=== PATIENT | female | born 1965 | race Caucasian/White ===

== ENCOUNTER 2016-12-20 07:18 | Inpatient (IN) | payer MEDICARE, OTHER ==
[2016-12-20] MEDS ORDERED: SODIUM CHLORIDE 0.9% 1,000 ML IV STA (07:42)
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
[2016-12-20 08:03] LABS: Partial Thromboplastin Time 23.1 sec (22.0-30.0); Prothrombin Time 10.3 sec (9.0-12.0)
[2016-12-20 08:04] LABS: Basophils % (A) 1 %; CH 35.3; CHCM 33.3; Eosinophils # (A) 0.2 k/uL (0-0.7); Eosinophils % (A) 3 %; HCT 43.8 % (34.0-46.0); HGB 14.1 gm/dL (11.4-16.0); Luc # (Auto) 0.09; Luc % (Auto) 1; Lymphocytes # (A) 1.1 k/uL (1.0-4.8); Lymphocytes % (A) 17 %; MCH 34.2 pg (25.0-35.0); MCHC 32.1 g/dL (31.0-37.0); MCV 106.6 fL (80.0-100.0); Macrocytosis Moderate; Mean Platelet Volume 7.7; Monocytes # (A) 0.2 k/uL (0-1.0); Monocytes % (A) 4 %; Neutrophils # (A) 4.7 k/uL (1.3-7.7); Neutrophils % (A) 74 %; RBC 4.11 m/uL (3.80-5.40); RDW 14.1 % (11.5-15.5); WBC 6.3 k/uL (3.8-10.6)
--- NOTE | 2016-12-20 08:09 | CT ---
EXAMINATION TYPE: CT brain wo con DATE OF EXAM: 12/20/2016 COMPARISON: 12/17/2016 HISTORY: Possible seizure, recent TIA CT DLP: 971.[address] of the brain was performed. The ventricles, basal cisterns and sulci overlying the cerebral convexities demonstrate a normal appe arance. There is no evidence for intracranial hemorrhage or sulcal effacement. No mass effects are seen. Osseous calvarium is intact. If symptoms persist consider MRI as clinically warranted. IMPRESSION: 1. No acute intracranial process is seen at this time.
[2016-12-20 08:14] LABS: ALT 63 U/L (9-52); AST 107 U/L (14-36); Alkaline Phosphatase 90 U/L (38-126); Anion Gap 14 mmol/L; Blood Urea Nitrogen 4 mg/dL (7-17); Calcium 8.9 mg/dL (8.4-10.2); Carbon Dioxide 21 mmol/L (22-30); Chloride 112 mmol/L (98-107); Glucose 75 mg/dL (74-99); Non-African American GFR(MDRD) >60 (>60 ml/min/1.73 sqM); Sodium 147 mmol/L (137-145); Total Bilirubin 0.5 mg/dL (0.2-1.3); Total Protein 7.2 g/dL (6.3-8.2)
[2016-12-20 08:16] LABS: Alcohol 238 mg/dL
[2016-12-20 08:17] LABS: Creatine Kinase 157 U/L (30-135)
[2016-12-20 08:30] LABS: Creatine Kinase MB 1.5 ng/mL (0.0-2.4); Troponin I <0.012 ng/mL (0.000-0.034)
--- NOTE | 2016-12-20 08:30 | XR ---
EXAMINATION TYPE: XR chest 2V DATE OF EXAM: 12/20/2016 COMPARISON: 12/17/2016 HISTORY: Altered mental status and difficulty in breathing TECHNIQUE: Frontal and lateral views of the chest are obtained. FINDINGS: There is no focal air space opacity. No evidence for pneumothorax. No pleural effusion. The cardiac silhouette size is within normal limits. The osseous structures are grossly intact. IMPRESSION: 1. No acute cardiopulmonary process.
[2016-12-20] MEDS ORDERED: ASPIRIN 325 MG TAB PO STA (09:32)
[2016-12-20] MEDS ORDERED: LORazepam 2 MG/ML INJ IV PRN ×2 (09:34)
[2016-12-20] MEDS ORDERED: THIAMINE 100 MG/ML 2 ML VIAL IM STA (09:34)
[2016-12-20] MEDS ORDERED: MULTIVITAMINS, THERA 1 EACH TAB PO SCH (12:00)
[2016-12-20 15:06] VITALS: RESP 18
[2016-12-20] MEDS: SODIUM CHLORIDE 0.9% 1,000 ML IV SCH ×2 (15:34→20:40)
[2016-12-20] MEDS: LORazepam 2 MG/ML INJ IV PRN ×4 (16:01→22:58)
[2016-12-20] MEDS ORDERED: THIAMINE 100 MG TAB PO SCH (17:00)
--- NOTE | 2016-12-20 20:15 | MR ---
EXAMINATION TYPE: MR brain wo con DATE OF EXAM: 12/20/2016 COMPARISON: NONE HISTORY: Possible seizure, recent TIA Standard multiplanar, multisequence MRI departmental protocol Multiplanar, multisequence images of the brain were acquired. Diffusion weighted imaging was performe d. FINDINGS: Ventricles have normal size. There is no mass effect nor midline shift. There is no sign of intracranial hemorrhage. Crawford-white matter structures have fairly normal signal pattern. There is no evidence of cerebral edema. Sella turcica appears normal. Brainstem is intact. There is no evidence of posterior fossa mass. There is normal flow void in the anterior middle and posterior cerebral santy felipe. Corpus callosum is intact. There is minimal mucosal thickening in the ethmoid and maxillary sin uses. IMPRESSION: Minimal sinusitis. Otherwise negative MR scan of the brain. No evidence of cortical infarct.
[2016-12-20] MEDS: OXcarbazepine 300 MG TAB PO SCH (20:40)
--- NOTE | 2016-12-20 20:58 | HP ---
HISTORY AND PHYSICAL DATE OF ADMISSION: 12/20/16 CHIEF COMPLAINT: Seizure. HISTORY OF PRESENT ILLNESS: This is a 51-year-old female who was discharged from the hospital yesterday after being admitted for alcohol intoxication and lethargy. Patient went home and drank 1 pint of vodka after she slept the whole night, when in the morning went to her friend's house and over there, she passed out and was witnessed to have a seizure according to her friend who called the EMS and brought her to the hospital. The patient denied tongue biting. Denied any urine or bladder incontinence. Denied any fall or head trauma. Stated that she remembers being weak and lethargic, was hearing voices around her but was not able to make any movement due to lethargy. Patient states that she was trying to quit drinking, but after she left the hospital, she went with the same Cleo and had this 1 pint of vodka. The patient had a prior admission 2 days ago where her alcohol level was greater than 300 and patient is a heavy alcoholic, continued to smoke 1-2 packs per day and denies any recreational drug use. The patient is denying chest pain, shortness breath, nausea, vomiting, abdominal pain, dizziness, lightheadedness, or blurry vision. ALLERGIES: No known drug allergies. MEDICATIONS: Home medication: The patient quit taking all her medication at the time. She used to be on albuterol inhaler for asthma and anxiety and depression medication along with multivitamins. REVIEW OF SYSTEMS: All 14 systems reviewed and negative except as above. PAST MEDICAL HISTORY: 1. History of TIA in the past. 2. Liver disease due to to alcohol abuse. 3. History of pulmonary embolism. 4. Anxiety. 5. Depression. 6. Posttraumatic stress disorder. 7. Bipolar disorder. SOCIAL HISTORY: Drinks 1-2 pints of vodka every day. Denied recreational drugs and stated that she smokes 1-2 packs cigarettes per day. FAMILY HISTORY: Mother with diabetes and CVA. Father who at age 67 of lung cancer. PHYSICAL EXAMINATION: Vital signs temperature 97.7, heart rate 95, respiratory 16, blood pressure 136/79, pulse ox is 97% on room air. General: Left eye without previous bruising. NECK: Supple. No masses. No thyromegaly. LUNGS: Clear to auscultation bilaterally. NECK: Supple S1, S2. ABDOMEN: Soft, nontender, soft, bowel sounds all 4 quadrants. Lower extremity no edema. Psych alert oriented x3. Relaxed mood and affect. Normal remote and recent memory. Neuro: No focal deficits. Cranial nerves 2-12 intact. Normal gait. Reflexes and sensation. Skin no new rash. IMAGING AND LABS: A brain CT showed no acute process. EKG showed normal sinus rhythm. CBC showed normal finding. Chemistry showed sodium 147 and normal otherwise. Have liver enzymes stable and elevated at 107, 63. AST and ALT respectively and troponin was negative. Albumin 4.4. Serum alcohol level was 238 on presentation. PT, PTT, INR within normal limits. Urine drug screen was positive for benzo. ASSESSMENT AND PLAN: 1. Generalized weakness. The patient continued to do heavy drinking even after a few hours from discharge from the hospital, seems to be noncompliant despite all the efforts from social work associate, hospital worker and myself to consultation regarding alcohol cessation, but patient continued to drink heavily and she knows the outcome and stated that she cannot resist. The patient likely had alcohol intoxication and passed out due to that reason and was brought to the emergency room by a friend because of the jerking movement that could represent seizure versus vasovagal syncope. Given the lack of tongue biting, trauma, urinary or bladder incontinence, I would like to consult Neurology for further evaluation. Monitor patient's withdrawal symptoms. Place her on CIWA protocol and multivitamin along with folic acid and repeat her blood work in the morning. Consider discharging patient per Neurology recommendation. 2. Alcohol abuse. Management as above. 3. Tobacco dependency. Continue counseling patient during this hospital stay. 4. Asthma seems to be in remission. Will continue inhalers as needed. 5. Hyponatremia, likely secondary to dehydration. Will continue gentle hydration and repeat blood work in the morning. 6. Discharge planning based on clinical progress. MMODL / IJN: [id number] /
[2016-12-21] MEDS: LORazepam 2 MG/ML INJ IV PRN ×3 (03:05→08:40)
[2016-12-21 03:19] LABS: Cholesterol 257 mg/dL (<200); HDL Cholesterol 109 mg/dL (40-60)
[2016-12-21] MEDS: SODIUM CHLORIDE 0.9% 1,000 ML IV SCH (06:15)
[2016-12-21] MEDS: OXcarbazepine 300 MG TAB PO SCH (08:38)
[2016-12-21] MEDS ORDERED: ATENOLOL 25 MG TAB PO SCH (09:00)
[2016-12-21] MEDS ORDERED: ASPIRIN 325 MG TAB PO SCH (09:00)
--- NOTE | 2016-12-21 09:38 | P.DS ---
Providers Date of admission: 12/20/16 09:33 Attending physician: Blank Eugene Consults: 12/20/16 09:33 Consult Physician Urgent Consulting Provider: Daphne Meza Consult Reason/Comments: cva Do you want consulting provider notified?: Yes [facility] Course: This is 51 years old female with history of alcohol abuse presents to the hospital one day after discharge from the hospital for generalized weakness which felt to be related to her chronic alcoholism. Patient was witnessed to have episodes of seizure by her friend after drinking 2 pints of Vodka,. Patient wasn't close to the emergency department and felt to have symptoms suggesting seizure and other etiology needed to be ruled out. MRI was done and showed normal finding. Patient felt stable from the medical standpoint for discharge consult regarding cessation and was started on Lipitor for her elevated cholesterol level. Patient is to follow-up with her primary care physician in 3 days. Plan - Discharge Summary Discharge Rx Participant: No New Discharge Prescriptions: No Action Atenolol [Tenormin] 25 mg PO DAILY #30 tab Albuterol Inhaler [Ventolin Hfa Inhaler] 1 - 2 puff INHALATION RT-Q6H PRN #1 inhaler PRN Reason: Shortness Of Breath Thiamine [Vitamin B-1] 100 mg PO DAILY #30 tablet Multivitamin [Men's Multi-Vitamin] 1 tab PO DAILY Atorvastatin [Lipitor] 10 mg PO DAILY Discharge Medication List Albuterol Inhaler [Ventolin Hfa Inhaler] 1 - 2 puff INHALATION RT-Q6H PRN #1 inhaler 12/19/16 [Rx] Atenolol [Tenormin] 25 mg PO DAILY #30 tab 12/19/16 [Rx] Thiamine [Vitamin B-1] 100 mg PO DAILY #30 tablet 12/19/16 [Rx] Multivitamin [Men's Multi-Vitamin] 1 tab PO DAILY 12/20/16 [History] Atorvastatin [Lipitor] 10 mg PO DAILY 12/21/16 [History] Follow up Appointment(s)/Referral(s): Daphne Meza MD [STAFF PHYSICIAN] - 1 Week Terrell Craig DO [Primary Care Provider] - 1-2 days Patient Instructions/Handouts: Generalized Anxiety Disorder (ED)
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
[2016-12-21 10:27] VITALS: TEMP 98
[2016-12-21] MEDS ORDERED: THIAMINE 100 MG TAB PO SCH (12:00)
[2016-12-21] MEDS ORDERED: MULTIVITAMINS, THERA 1 EACH TAB PO SCH (12:00)
[2016-12-21 13:05] VITALS: BP 133/94; PULSE 82
--- NOTE | 2016-12-21 18:56 | EEG ---
ELECTROENCEPHALOGRAM REPORT DATE OF SERVICE: 12/21/2016. REASON FOR TESTING: Seizure. CURRENT ANTIEPILEPTIC MEDICATIONS: Trileptal. DESCRIPTION OF THE RECORDING: This EEG was performed using a 21 channel digital electroencephalograph, following international 10-20 system. DESCRIPTION OF THE RECORDING: From the beginning of the tracing, with patient's eyes closed, the background rhythm was mostly consisting of 9-10 hertz alpha frequency in the posterior occipital leads. No obvious asymmetry is seen. Hyperventilation was performed with a minimal buildup of amplitude seen. No pathological waves were elicited. Photic stimulation was performed with a minimal driving response seen. No pathological waves were elicited. Frequent muscle and movement artifacts are seen. The patient remains awake throughout the tracing. No epileptiform discharges were seen. Her EKG lead showed a regular rate and rhythm. INTERPRETATION: This awake EEG can be considered within normal limits. There is no asymmetry seen. No epileptiform discharges were noticed. The absence of epileptiform discharges does not rule out the diagnosis of epilepsy, therefore clinical correlation is recommended. MMMADDY / IJN: [id number] /
== END 2016-12-21 16:11 | disposition home or self-care (01) | DRG 101 ==
LOC: EC 07:18 → 6SEL 09:33
PROVIDERS: ADMIT Internal Medicine; ATTEND Internal Medicine
DX: G40.89 Other seizures (principal); E87.0 Hyperosmolality and hypernatremia; K70.9 Alcoholic liver disease, unspecified; E86.0 Dehydration; E78.00 Pure hypercholesterolemia, unspecified; F10.229 Alcohol dependence with intoxication, unspecified; F17.200 Nicotine dependence, unspecified, uncomplicated; F43.10 Post-traumatic stress disorder, unspecified; J45.909 Unspecified asthma, uncomplicated; S00.83XA Contusion of other part of head, initial encounter; F32.9 Major depressive disorder, single episode, unspecified; F41.1 Generalized anxiety disorder; Z91.19 Patient's noncompliance with other medical treatment and regimen; Y90.7 Blood alcohol level of 200-239 mg/100 ml
CPT/HCPCS: 36415; 70450; 70551; 71020; 80053; 80061; 80306; 80320; 82550; 82553; 84484; 85025; 85610; 85730; 93005; 95819; 96360; 96361; 99285

== ENCOUNTER 2017-04-23 15:26 | Observation (INO) | payer MEDICARE, OTHER ==
[2017-04-23] MEDS ORDERED: LORazepam 2 MG/ML INJ IV STA (16:10)
[2017-04-23] MEDS ORDERED: SODIUM CHLORIDE 0.9% 1,000 ML IV STA ×2 (16:10)
--- NOTE | 2017-04-23 16:14 | ED ---
Seizure HPI - General Chief Complaint: Seizure Stated Complaint: Alcohol Withdrawls Time Seen by Provider: 04/23/17 16:01 Source: patient, EMS Mode of arrival: EMS Limitations: altered mental status - History of Present Illness Initial Comments: 89 years O female came in with a seizure disorder she said she has not been able to take her Trileptal for the last week she ran out she had a seizure 6 AM today and she has been drinking today she said she does have a injury to her head and she was bleeding from the forehead. Complaining about headache no neck pain no chest pain no shortness of breath no abdominal pain she denies any injury to the upper or lower extremity - Related Data Home Medications Medication Instructions Recorded Confirmed Acamprosate Calcium [Campral] 666 mg PO TID 04/23/17 04/23/17 QUEtiapine XR [SEROquel XR] 150 mg PO W/SUPPER 04/23/17 04/23/17 Venlafaxine HCl ER [Effexor Xr] 150 mg PO QAM 04/23/17 04/23/17 Previous Rx's Medication Instructions Recorded Atenolol [Tenormin] 25 mg PO DAILY #30 tab 12/19/16 OXcarbazepine [Trileptal] 300 mg PO BID #60 tablet 12/21/16 Allergies Allergy/AdvReac Type Severity Reaction Status Date / Time No Known Allergies Allergy Verified 04/23/17 16:49 Review of Systems ROS Statement: Those systems with pertinent positive or pertinent negative responses have been documented in the HPI. ROS Other: All systems not noted in ROS Statement are negative. Past Medical History Past Medical History: Atrial Fibrillation, Asthma, CVA/TIA, Hypertension, Liver Disease, Pulmonary Embolus (PE), Seizure Disorder Additional Past Medical History / Comment(s): Pt recently admitted to [facility] 12/18 with toxic encephalopathy, R facial droop. Other hx: Alcohol abuse- past alcohol withdrawals/DTs/seizure, enlarged liver. History of Any Multi-Drug Resistant Organisms: None Reported Past Surgical History: No Surgical Hx Reported Past Anesthesia/Blood Transfusion Reactions: No Reported Reaction Past Psychological History: Anxiety, Bipolar, Depression, PTSD Smoking Status: Current every day smoker Past Alcohol Use History: Abuse, Daily, Heavy Past Drug Use History: None Reported - Past Family History Mother Family Medical History: CVA/TIA, Diabetes Mellitus Additional Family Medical History / Comment(s): Mother is alive at age 82 with history of stroke. Father Family Medical History: Cancer Additional Family Medical History / Comment(s): from lung cancer. Father was a smoker. Brother(s) Additional Family Medical History / Comment(s): Patient has one brother age 52 with history of asthma. Patient has one sister age 43 with asthma. General Exam Limitations: altered mental status Course Vital Signs 04/23/17 04/23/17 15:35 15:45 Temperature 98.7 F Pulse Rate 98 Respiratory 16 Rate Blood Pressure 126/80 O2 Sat by Pulse 95 Oximetry EKG sinus tachycardia ventricular rate is 101 HI interval is 134 QRS duration is 86 QT/QTc is 350/453 and aVF this EKG does not reveal any ST elevation or ST depression She is reassessed at term 1730, head CT is normal serum alcohol is 362 CBC is absolutely within normal range compressive metabolic panel shows some elevated sodium she got some IV fluids and banana load her with a Dilantin 1 g since he has not been compliant with her home meds. Avoid any seizure sure he got some as needed Ativan on board. She has been noncompliant with her medications and she has been not drinking him a at this point I believe she is not able to care for herself though a computed tomography scan normal she started seizing again and her probability of having a head injury or major fracture is quite high, and discussed with the Dr. Montes De Oca she agreed patient be admitted observation with some Librium 10 mg by mouth 4 times a day neurology consult Medical Decision Making - Lab Data Result diagrams: 04/23/17 15:50 04/23/17 15:50 Lab Results 04/23/17 04/23/17 Range/Units 15:50 15:50 WBC 3.6 L (3.8-10.6) k/uL RBC 4.67 (3.80-5.40) m/uL Hgb 15.6 (11.4-16.0) gm/dL Hct 47.8 H (34.0-46.0) % MCV 102.4 H (80.0-100.0) fL MCH 33.5 (25.0-35.0) pg MCHC 32.7 (31.0-37.0) g/dL RDW 12.4 (11.5-15.5) % Plt Count 283 (150-450) k/uL Neutrophils % 44 % Lymphocytes % 47 % Monocytes % 3 % Eosinophils % 3 % Basophils % 2 % Neutrophils # 1.6 (1.3-7.7) k/uL Lymphocytes # 1.7 (1.0-4.8) k/uL Monocytes # 0.1 (0-1.0) k/uL Eosinophils # 0.1 (0-0.7) k/uL Basophils # 0.1 (0-0.2) k/uL Macrocytosis Slight Sodium 148 H (137-145) mmol/L Potassium 4.3 (3.5-5.1) mmol/L Chloride 106 (98-107) mmol/L Carbon Dioxide 26 (22-30) mmol/L Anion Gap 16 mmol/L BUN 13 (7-17) mg/dL Creatinine 0.60 (0.52-1.04) mg/dL Est GFR (MDRD) Af Amer >60 (>60 ml/min/1.73 sqM) Est GFR (MDRD) Non-Af >60 (>60 ml/min/1.73 sqM) Glucose 73 L (74-99) mg/dL Calcium 8.9 (8.4-10.2) mg/dL Total Bilirubin 0.4 (0.2-1.3) mg/dL AST 69 H (14-36) U/L ALT 52 (9-52) U/L Alkaline Phosphatase 90 (38-126) U/L Total Protein 7.3 (6.3-8.2) g/dL Albumin 4.5 (3.5-5.0) g/dL Serum Alcohol 362 mg/dL Disposition Clinical Impression: Recurrent seizures Disposition: ADMITTED IP TO THIS [facility] Condition: Good Referrals: Terrell Craig DO [Primary Care Provider] - 1-2 days
[2017-04-23 16:30] LABS: Basophils # (A) 0.1 k/uL (0-0.2); Basophils % (A) 2 %; Eosinophils # (A) 0.1 k/uL (0-0.7); Eosinophils % (A) 3 %; HCT 47.8 % (34.0-46.0); HGB 15.6 gm/dL (11.4-16.0); Lymphocytes # (A) 1.7 k/uL (1.0-4.8); Lymphocytes % (A) 47 %; MCH 33.5 pg (25.0-35.0); MCHC 32.7 g/dL (31.0-37.0); MCV 102.4 fL (80.0-100.0); Macrocytosis Slight; Mean Platelet Volume 6.6; Monocytes # (A) 0.1 k/uL (0-1.0); Monocytes % (A) 3 %; Neutrophils # (A) 1.6 k/uL (1.3-7.7); Neutrophils % (A) 44 %; Platelet Count 283 k/uL (150-450); RBC 4.67 m/uL (3.80-5.40); RDW 12.4 % (11.5-15.5); WBC 3.6 k/uL (3.8-10.6)
[2017-04-23 16:41] LABS: ALT 52 U/L (9-52); AST 69 U/L (14-36); Albumin 4.5 g/dL (3.5-5.0); Alkaline Phosphatase 90 U/L (38-126); Anion Gap 16 mmol/L; Blood Urea Nitrogen 13 mg/dL (7-17); Calcium 8.9 mg/dL (8.4-10.2); Carbon Dioxide 26 mmol/L (22-30); Chloride 106 mmol/L (98-107); Glucose 73 mg/dL (74-99); Potassium 4.3 mmol/L (3.5-5.1); Sodium 148 mmol/L (137-145); Total Bilirubin 0.4 mg/dL (0.2-1.3); Total Protein 7.3 g/dL (6.3-8.2)
[2017-04-23 16:50] LABS: Alcohol 362 mg/dL
--- NOTE | 2017-04-23 17:07 | CT ---
EXAMINATION TYPE: CT brain wo con DATE OF EXAM: 04/23/2017 COMPARISON: 12/20/2016 HISTORY: Seizure activity. CT DLP: 820.7 mGycm. Automated Exposure Control for Dose Reduction was Utilized. TECHNIQUE: CT scan of the head is performed without contrast. FINDINGS: There is no acute intracranial hemorrhage, mass effect, or midline shift identified. No suspicious extra axial fluid collection. The ventricles and sulci are within normal limits in size. The globes are intact and the visualized sinuses are clear. IMPRESSION: No acute intracranial process, unchanged from the exam of 12/20/2016. Follow-up MRI coul d be performed if clinically indicated in this patient with seizures.
[2017-04-23] MEDS ORDERED: PHENYTOIN SODIUM INJ 1,000 MG in SODIUM CHLORIDE 0.9% 100 ML IVPB STA (17:40)
[2017-04-23] MEDS ORDERED: NALOXONE 0.4 MG/ML 1 ML VIAL IV PRN (17:45)
[2017-04-23] MEDS ORDERED: ONDANSETRON 4 MG/2 ML VIAL IVP PRN (17:45)
[2017-04-23] MEDS: ACAMPROSATE CALCIUM 333 MG TABLET.DR PO SCH (20:33)
[2017-04-23] MEDS: OXcarbazepine 300 MG TAB PO SCH (20:33)
[2017-04-23] MEDS: LORazepam 2 MG/ML INJ IV PRN ×3 (20:48→23:47)
[2017-04-23 21:46] LABS: Amphetamine Screen,Urine Not Detected (NotDetected); Barbiturate Screen,Urine Not Detected (NotDetected); Benzodiazepines Screen,Urine Detected (NotDetected); Cocaine Screen,Urine Not Detected (NotDetected); Methadone Screen, Urine Not Detected (NotDetected); Opiate Screen,Urine Not Detected (NotDetected); Oxycodone Screen, Urine Not Detected (NotDetected); Phencyclidine Screen,Urine Not Detected (NotDetected); Tricyclic Antidepressant,Urine Not Detected (NotDetected); Urn Cannabinoid Scrn Not Detected (NotDetected)
[2017-04-24] MEDS: LORazepam 2 MG/ML INJ IV PRN ×3 (02:29→23:42)
[2017-04-24] MEDS ORDERED: QUEtiapine 50 MG TAB PO SCH (07:30)
[2017-04-24] MEDS ORDERED: VENLAFAXINE HCL ER 150 MG CAP PO SCH (09:00)
[2017-04-24] MEDS: ATENOLOL 25 MG TAB PO SCH (09:48)
[2017-04-24] MEDS: OXcarbazepine 300 MG TAB PO SCH ×2 (09:48→22:02)
[2017-04-24] MEDS: ACAMPROSATE CALCIUM 333 MG TABLET.DR PO SCH (09:48)
--- NOTE | 2017-04-24 16:43 | P.HPIM ---
History of Present Illness H&P Date: 04/24/17 Chief Complaint: seizure This is a 51-year-old female patient of Dr. Soto with past medical history of hypertension, anxiety, depression, bipolar disorder, alcohol abuse. Patient is here with alcohol intoxication and recurrent seizure. She was last seen in November for 2016 for similar presentation of alcohol intoxication and generalized weakness. Patient is a noncompliant with her medication. Patient is currently drinking a pint of vodka per day. She also stopped taking atenolol, Seroquel, Effexor, Ventolin inhaler at home. She was brought into [facility] emergency center for evaluation today after a seizure. According to patient she hasn't taken her Trileptal for a week. Patient was documented to have seizure in the ER and was loaded on Dilantin 1 g. She was started on her home medication including venlafaxine, Seroquel and received last dose in the morning. Patient was started on Ativan as well as Librium for her alcohol intoxication. CT head was done as patient had a bruise on her forehead which was negative for any acute abnormality or hematoma. Labs done in the ER includes a CBC with a WBC 3.6, BNP suggested a sodium 148 glucose 73 creatinine 0.6. AST of 69, AST 52, alkaline phosphatase 90, serum alcohol of 362 troponin negative. She was started on IV fluids.. CAT scan of the brain was negative. On my evaluation this morning, patient is drowsy, and says questions appropriately and goes back to sleep again. She did receive her morning Seroquel, Effexor, Ativan and Librium as per the nurse's documentation. Patient is unable to provide any history. Effexor and Seroquel held due to change in mental status. Neurology consult pending. EEG ordered. Trileptal initiated at home dose. Ativan to be given as needed for seizures. Fall and seizure precautions will be taken Review of Systems ROS unobtainable: due to mental status Past Medical History Past Medical History: Atrial Fibrillation, Asthma, CVA/TIA, Hypertension, Liver Disease, Pulmonary Embolus (PE), Seizure Disorder Additional Past Medical History / Comment(s): Pt recently admitted to [facility] 12/18 with toxic encephalopathy, R facial droop. Other hx: Alcohol abuse- past alcohol withdrawals/DTs/seizure, enlarged liver. History of Any Multi-Drug Resistant Organisms: None Reported Past Surgical History: No Surgical Hx Reported Past Anesthesia/Blood Transfusion Reactions: No Reported Reaction Past Psychological History: Anxiety, Bipolar, Depression, PTSD Additional Psychological History / Comment(s): Goes to [facility] every week and sees a councelor named Wilfred. Sees a Dr there every month. Pt denies current suicidal thoughts/plans but states about 1 month ago she had thoughts of suicide but no plan/no action. Pt lives with her significant other. She has a L ecchymotic eye. Desk Maker asked pt about any type of abuse-"I don't want to talk about it." Pt declines any social service or case management intervention for any saftety issues. See ER physician documentation. Smoking Status: Current every day smoker Past Alcohol Use History: Abuse, Daily, Heavy Additional Past Alcohol Use History / Comment(s): Drinks 4-5 cocktails a day. Drinks primarily 1 pint of vodka a day. Has been smoking for 30 years about a pack a day. Last drank last night. Past Drug Use History: None Reported - Past Family History Mother Family Medical History: CVA/TIA, Diabetes Mellitus Additional Family Medical History / Comment(s): Mother is alive at age 82 with history of stroke. Father Family Medical History: Cancer Additional Family Medical History / Comment(s): from lung cancer. Father was a smoker. Brother(s) Additional Family Medical History / Comment(s): Patient has one brother age 52 with history of asthma. Patient has one sister age 43 with asthma. Medications and Allergies Home Medications Medication Instructions Recorded Confirmed Type Atenolol [Tenormin] 25 mg PO DAILY #30 tab 12/19/16 04/23/17 Rx OXcarbazepine [Trileptal] 300 mg PO BID #60 tablet 12/21/16 04/23/17 Rx Acamprosate Calcium [Campral] 666 mg PO TID 04/23/17 04/23/17 History QUEtiapine XR [SEROquel XR] 150 mg PO W/SUPPER 04/23/17 04/23/17 History Venlafaxine HCl ER [Effexor Xr] 150 mg PO QAM 04/23/17 04/23/17 History Allergies Allergy/AdvReac Type Severity Reaction Status Date / Time No Known Allergies Allergy Verified 04/23/17 16:49 Physical Exam Vitals: Vital Signs Temp Pulse Pulse Pulse Resp BP BP 04/24/17 15:50 98.2 F 75 16 110/76 04/24/17 12:00 18 04/24/17 11:35 98.4 F 98 18 117/78 04/24/17 08:00 18 04/24/17 07:57 97.8 F 90 18 113/73 04/24/17 04:00 98 16 131/82 04/24/17 03:11 16 04/23/17 23:28 16 04/23/17 20:00 16 04/23/17 19:40 98.0 F 108 H 16 120/87 04/23/17 18:35 98.5 F 93 18 142/75 Pulse Ox 04/24/17 15:50 96 04/24/17 12:00 04/24/17 11:35 96 04/24/17 08:00 04/24/17 07:57 97 04/24/17 04:00 95 04/24/17 03:11 04/23/17 23:28 04/23/17 20:00 04/23/17 19:40 95 04/23/17 18:35 98 Intake and Output 04/24/17 04/24/17 04/24/17 06:59 14:59 22:59 Intake Total 200 Balance 200 Intake: Oral 200 Other: Voiding Method Toilet Toilet # Voids 4 - Constitutional Drowsy General appearance: average body habitus, no acute distress - EENT Eyes: EOMI, PERRLA ENT: hearing grossly normal Ears: bilateral: normal - Neck Neck: no lymphadenopathy, normal ROM Carotids: bilateral: upstroke normal - Respiratory Respiratory: bilateral: CTA, negative: diminished, dullness, rales, rhonchi, wheezing - Cardiovascular Rhythm: regular Heart sounds: normal: S1, S2 Abnormal Heart Sounds: no systolic murmur, no diastolic murmur, no rub ankle Peripheral Edema: absent: None - Gastrointestinal General gastrointestinal: no hepatomegaly, normal bowel sounds, soft, no tenderness - Integumentary Superficial bruise on the right side of forehead Integumentary: no calor, no cyanotic, rash - Musculoskeletal Musculoskeletal: generalized weakness, strength equal bilaterally - Psychiatric Decreased responsiveness Results CBC & Chem 7: 04/23/17 15:50 04/23/17 15:50 Labs: Abnormal Lab Results - Last 24 Hours (Table) 04/23/17 04/23/17 04/23/17 Range/Units 15:50 15:50 21:20 WBC 3.6 L (3.8-10.6) k/uL Hct 47.8 H (34.0-46.0) % MCV 102.4 H (80.0-100.0) fL Sodium 148 H (137-145) mmol/L Glucose 73 L (74-99) mg/dL AST 69 H (14-36) U/L U Benzodiazepines Scrn Detected H (NotDetected) Thrombosis Risk Factor Assmnt - DVT/VTE Prophylaxis DVT/VTE Prophylaxis: Pharmacologic Prophylaxis ordered - Choose All That Apply Any of the Below Risk Factors Present?: Yes Each Factor Represents 1 point: Age 41-60 years Other Risk Factors: No Other congenital or acquired thrombophilia - If yes, enter type in comment: No Thrombosis Risk Factor Assessment Total Risk Factor Score: 1 Thrombosis Risk Factor Assessment Level: Low Risk Assessment and Plan Plan: 1. Toxic encephalopathy with seizures secondary to alcohol abuse and medication. Patient unable to provide any history. Hold medications that affect her mental status including Effexor and Seroquel. Continue Ativan 1 mg every hour when necessary seizures. Librium to be initiated at 5 mg 3 times a day. 7 neurology evaluation pending. She didn't initiated on Trileptal at home dose and stop further recommendations as per neurology. Continue fall and seizure precautions. No recurrent episode of seizure noted on the . floor. Continue banana bag and 100 mL/h 2. Hypertension. Patient stopped taking atenolol when her prescription ran out. Patient will be provided with atenolol 25 mg daily and she has been instructed to follow up with her primary care physician. 3. Mild intermittent asthma. Patient will be provided albuterol inhaler. 4. Tobacco dependence. Smoking cessation. 5. Bipolar disease - patient has not been taking her home medication including Effexor and Seroquel. He is unable to provide any history due to increased drowsiness. We will hold Effexor and Seroquel due to change in mental status. Patient needs to follow with psychiatrist for medication compliance. 6 DVT prophylaxis with heparin 5000 every 12 Patient needs urology evaluation and management for alcohol intoxication. We need 1-2 inpatient nights
[2017-04-24] MEDS ORDERED: SODIUM CHLORIDE 0.9% 1,000 ML with MVI, ADULT NO.4 WITH VIT K 10 ML, THIAMINE 100 MG, F... IV ONE ×4 (17:15)
--- NOTE | 2017-04-24 17:58 | EEG ---
ELECTROENCEPHALOGRAM REPORT DATE OF SERVICE: 04/24/2017. REASON FOR TESTING: Seizure. DESCRIPTION OF THE PROCEDURE: This EEG was performed using a 21 channel digital electroencephalograph, following international 10-20 system. CURRENT ANTIEPILEPTIC MEDICATIONS: Trileptal. DESCRIPTION OF THE RECORDING: From the beginning of the tracing, with patient's eyes closed, the background rhythm was mostly consisting of 9 Hz alpha frequency in the posterior occipital leads. No obvious asymmetry is seen. Frequent movement and muscle artifacts are seen. Photic stimulation was performed with a good driving response seen. No pathological waves were elicited. Hyperventilation was not performed. The patient remains awake throughout the tracing. No epileptiform discharges were seen. The EKG lead showed a regular rate and rhythm. INTERPRETATION: This awake EEG can be considered within normal limits. There was no asymmetry seen. No epileptiform discharges were noticed. The absence of epileptiform discharges does not rule out the diagnosis of epilepsy, therefore clinical correlation is recommended. MMTEDL / IJN: [id number] /
[2017-04-24] MEDS: chlordiazePOXIDE 5 MG CAPSULE PO SCH ×2 (18:14→22:01)
--- NOTE | 2017-04-24 20:02 | P.CNNES ---
History of Present Illness Consult date: 04/24/17 History of Present Illness: The patient is a 51-year-old right-handed white female who states that she fell stepping down dose porch step. He apparently had a seizure at home as were brought by EMS to the hospital. She had reported to the emergency room that she had not taken her seizure medication for a week. She states she had stopped drinking about 3 weeks ago. He normally takes Trileptal. Urgency room she was loaded with Dilantin because she did have a witnessed seizure in the ER. He was admitted with alcohol intoxication. Scan of the brain was done which showed no acute abnormality. Complains of some back pain. He has a history of alcohol withdrawal seizures. She had a serum alcohol of 362. Review of Systems ROS unobtainable: due to mental status Past Medical History Past Medical History: Atrial Fibrillation, Asthma, CVA/TIA, Hypertension, Liver Disease, Pulmonary Embolus (PE), Seizure Disorder Additional Past Medical History / Comment(s): Pt recently admitted to [facility] 12/18 with toxic encephalopathy, R facial droop. Other hx: Alcohol abuse- past alcohol withdrawals/DTs/seizure, enlarged liver. History of Any Multi-Drug Resistant Organisms: None Reported Past Surgical History: No Surgical Hx Reported Past Anesthesia/Blood Transfusion Reactions: No Reported Reaction Past Psychological History: Anxiety, Bipolar, Depression, PTSD Additional Psychological History / Comment(s): Goes to [facility] every week and sees a councelor named Wilfred. Sees a Dr there every month. Pt denies current suicidal thoughts/plans but states about 1 month ago she had thoughts of suicide but no plan/no action. Pt lives with her significant other. She has a L ecchymotic eye. Planer Off Bearer asked pt about any type of abuse-"I don't want to talk about it." Pt declines any social service or case management intervention for any saftety issues. See ER physician documentation. Smoking Status: Current every day smoker Past Alcohol Use History: Abuse, Daily, Heavy Additional Past Alcohol Use History / Comment(s): Drinks 4-5 cocktails a day. Drinks primarily 1 pint of vodka a day. Has been smoking for 30 years about a pack a day. Last drank last night. Past Drug Use History: None Reported - Past Family History Mother Family Medical History: CVA/TIA, Diabetes Mellitus Additional Family Medical History / Comment(s): Mother is alive at age 82 with history of stroke. Father Family Medical History: Cancer Additional Family Medical History / Comment(s): from lung cancer. Father was a smoker. Brother(s) Additional Family Medical History / Comment(s): Patient has one brother age 52 with history of asthma. Patient has one sister age 43 with asthma. Medications and Allergies Home Medications Medication Instructions Recorded Confirmed Type Atenolol [Tenormin] 25 mg PO DAILY #30 tab 12/19/16 04/23/17 Rx OXcarbazepine [Trileptal] 300 mg PO BID #60 tablet 12/21/16 04/23/17 Rx Acamprosate Calcium [Campral] 666 mg PO TID 04/23/17 04/23/17 History QUEtiapine XR [SEROquel XR] 150 mg PO W/SUPPER 04/23/17 04/23/17 History Venlafaxine HCl ER [Effexor Xr] 150 mg PO QAM 04/23/17 04/23/17 History Allergies Allergy/AdvReac Type Severity Reaction Status Date / Time No Known Allergies Allergy Verified 04/23/17 16:49 Physical Examination - Vital Signs Vital Signs: Vital Signs Temp Pulse Pulse Resp BP Pulse Ox 04/24/17 15:50 98.2 F 75 16 110/76 96 04/24/17 11:35 98.4 F 98 18 117/78 96 04/24/17 08:00 18 04/24/17 07:57 97.8 F 90 18 113/73 97 04/24/17 04:00 98 16 131/82 95 04/24/17 03:11 16 04/23/17 23:28 16 04/23/17 20:00 16 Intake and Output 04/24/17 04/24/17 04/24/17 06:59 14:59 22:59 Intake Total 200 Balance 200 Intake: Oral 200 Other: Voiding Method Toilet Toilet # Voids 4 2 - Constitutional General appearance: average body habitus - EENT EENT: PERRL, hearing intact, vision intact - Respiratory Respiratory: lungs clear - Cardiovascular Cardiovascular: regular rate, normal S1, normal S2 - Integumentary Integumentary: normal - Neurologic Mental status she was sleeping but easily arousable was awake and oriented to person to was disoriented to surroundings and situation Cranial nerve examination: PERRL, EOMI, face symmetric, tongue midline, intact Speech examination: intact Detailed motor examination: grossly full strength in all extremities Detailed sensory examination: light touch Reflexes: 2+: bicep - Psychiatric Mood is intoxicated Results - Laboratory Findings CBC and BMP: 04/23/17 15:50 04/23/17 15:50 Abnormal Lab Findings: Abnormal Labs 04/23/17 04/23/17 04/23/17 15:50 15:50 21:20 WBC 3.6 L Hct 47.8 H MCV 102.4 H Sodium 148 H Glucose 73 L AST 69 H U Benzodiazepines Scrn Detected H Assessment and Plan (1) Recurrent seizures Current Visit: Yes Status: Acute SNOMED Code(s): 82056704 (2) Alcohol intoxication Status: Acute Code(s): F10.929 - ALCOHOL USE, UNSPECIFIED WITH INTOXICATION, UNSPECIFIED SNOMED Code(s): 02035293 (3) Acute encephalopathy Status: Acute Code(s): G93.40 - ENCEPHALOPATHY, UNSPECIFIED SNOMED Code(s): 96978410 Plan: Patient is a 51-year-old woman with history of's alcohol-related seizures who stopped taking her seizure medication about one week ago. His admitted to the hospital with breakthrough seizure. He was also admitted with alcohol intoxication. Patient was loaded with Dilantin 1 g in the emergency room. Recommend continue Trileptal as well as Dilantin. She has been off of Trileptal for a week and this will take some time to get to a therapeutic level. Recommend CT lumbar spine evaluation of back pain after fall
[2017-04-24] MEDS ORDERED: PHENYTOIN SODIUM EXTENDED 100 MG CAP PO SCH (21:00)
--- NOTE | 2017-04-24 21:15 | CT ---
EXAMINATION TYPE: CT lumbar spine wo con DATE OF EXAM: 04/24/2017 8:26 PM COMPARISON: NONE HISTORY: Back pain. CT DLP: 906 mGycm Automated exposure control for dose reduction was used. Unenhanced CT of the lumbar spine was performed. Bone and soft tissue window settings are submitted as well as coronal and sagittal reconstructions. The lumbar vertebra have normal alignment. Disc spaces are fairly normal. Posterior elements are inta ct. There is no compression fracture. I see no focal bone destruction. There is no lumbar paraspinal mass. There is mild atheromatous change in the abdominal aorta. The visualized sacroiliac joints appe ar normal. There is no evidence of lumbar spinal stenosis. There is small posterior calcified disc he rniation at L5-S1 on the left side. There is small posterior L4-5 disc bulge. There is developmentall y adequate spinal canal. IMPRESSION: Small posterior left-sided L5-S1 disc herniation. No spinal stenosis. No fracture. No significant dis c space narrowing.
[2017-04-24] MEDS: HEPARIN SODIUM,PORCINE 5,000 UNIT/ML 1 ML VIAL SQ SCH (22:01)
[2017-04-25 07:37] VITALS: RESP 16
[2017-04-25] MEDS: ATENOLOL 25 MG TAB PO SCH (08:14)
[2017-04-25] MEDS: OXcarbazepine 300 MG TAB PO SCH (08:14)
[2017-04-25] MEDS ORDERED: PHENYTOIN SODIUM EXTENDED 100 MG CAP PO SCH (09:00)
[2017-04-25] MEDS: chlordiazePOXIDE 5 MG CAPSULE PO SCH (09:27)
[2017-04-25] MEDS: HEPARIN SODIUM,PORCINE 5,000 UNIT/ML 1 ML VIAL SQ SCH (09:27)
[2017-04-25 15:00] VITALS: BP 110/72; PULSE 84; TEMP 98.3
--- NOTE | 2017-04-25 15:13 | P.DS ---
Providers Date of admission: 04/23/17 17:45 Expected date of discharge: 04/25/17 Attending physician: Merced Montes De Oca Consults: 04/23/17 17:45 Consult Physician Stat Consulting Provider: Bettie Rankin Consult Reason/Comments: Recurrent seizure disorder Do you want consulting provider notified?: Yes 04/23/17 18:56 Consult Physician Routine Consulting Provider: Cally Stanford Consult Reason/Comments: suicide thoughts Do you want consulting provider notified?: Yes Primary care physician: [facility] Course: This is a 51-year-old female patient of Dr. Soto with past medical history of hypertension, anxiety, depression, bipolar disorder, alcohol abuse. Patient is here with alcohol intoxication and recurrent seizure. She was last seen in November for 2016 for similar presentation of alcohol intoxication and generalized weakness. Patient is a noncompliant with her medication. Patient is currently drinking a pint of vodka per day. She also stopped taking atenolol, Seroquel, Effexor, Ventolin inhaler at home. She was brought into [facility] emergency center for evaluation today after a seizure. According to patient she hasn't taken her Trileptal for a week. Patient was documented to have seizure in the ER and was loaded on Dilantin 1 g. She was started on her home medication including venlafaxine, Seroquel and received last dose in the morning. Patient was started on Ativan as well as Librium for her alcohol intoxication. CT head was done as patient had a bruise on her forehead which was negative for any acute abnormality or hematoma. Labs done in the ER includes a CBC with a WBC 3.6, BNP suggested a sodium 148 glucose 73 creatinine 0.6. AST of 69, AST 52, alkaline phosphatase 90, serum alcohol of 362 troponin negative. She was started on IV fluids.. CAT scan of the brain was negative. On my evaluation this morning, patient is drowsy, and says questions appropriately and goes back to sleep again. She did receive her morning Seroquel, Effexor, Ativan and Librium as per the nurse's documentation. Patient is unable to provide any history. Effexor and Seroquel held due to change in mental status. Neurology consult pending. EEG ordered. Trileptal initiated at home dose. Ativan to be given as needed for seizures. Fall and seizure precautions will be taken 04/25: Patient has been seen by Dr. Rankin. EEG within normal limits. He has recommended Trileptal and Dilantin to be resumed. He has also recommended a CAT scan of the lumbar spine which showed a small posterior left-sided L5-S1 disc herniation. No spinal stenosis. No fracture. No significant disc space narrowing. Patient continues to have safety belt installer at the bedside. A shunt has been seen by mental health and has been accepted into the mental health unit as it following tarry admission. Patient will be discharged there in stable condition. Discharge diagnoses: 1. Toxic encephalopathy with seizures secondary to alcohol abuse and noncompliance with medication. 2. Hypertension. 3. Mild intermittent asthma. 4. Tobacco dependence. 5. Bipolar disorder Discharge plan: Mental health unit as a voluntary admission Impression and plan of care have been directed as dictated by the signing physician. Radha Holguin nurse practitioner acting as scribe for signing physician. Patient Condition at Discharge: Good Plan - Discharge Summary Discharge Rx Participant: No New Discharge Prescriptions: New chlordiazePOXIDE HCL [Librium] 5 mg PO TID cap Phenytoin Sodium Extended [Dilantin] 200 mg PO DAILY cap Phenytoin Sodium Extended [Dilantin] 100 mg PO HS cap Etodolac [Lodine XR] 400 mg PO DAILY #30 tab Lidocaine 5% Patch [Lidoderm 5% Patch] 1 patch TOPICAL DAILY #10 patch Continue Atenolol [Tenormin] 25 mg PO DAILY #30 tab OXcarbazepine [Trileptal] 300 mg PO BID #60 tablet Venlafaxine HCl ER [Effexor XR] 150 mg PO QAM QUEtiapine XR [SEROquel XR] 150 mg PO W/SUPPER Acamprosate Calcium [Campral] 666 mg PO TID Discharge Medication List Atenolol [Tenormin] 25 mg PO DAILY #30 tab 12/19/16 [Rx] OXcarbazepine [Trileptal] 300 mg PO BID #60 tablet 12/21/16 [Rx] Acamprosate Calcium [Campral] 666 mg PO TID 04/23/17 [History] QUEtiapine XR [SEROquel XR] 150 mg PO W/SUPPER 04/23/17 [History] Venlafaxine HCl ER [Effexor XR] 150 mg PO QAM 04/23/17 [History] Etodolac [Lodine XR] 400 mg PO DAILY #30 tab 04/25/17 [Rx] Lidocaine 5% Patch [Lidoderm 5% Patch] 1 patch TOPICAL DAILY #10 patch 04/25/17 [Rx] Phenytoin Sodium Extended [Dilantin] 100 mg PO HS cap 04/25/17 [Rx] Phenytoin Sodium Extended [Dilantin] 200 mg PO DAILY cap 04/25/17 [Rx] chlordiazePOXIDE HCL [Librium] 5 mg PO TID cap 04/25/17 [Rx] Follow up Appointment(s)/Referral(s): Terrell Craig DO [Primary Care Provider] - 1 Week Discharge Disposition: TRANSFER TO PSYCH HOSP/UNIT
--- NOTE | 2017-04-27 09:24 | EEG ---
ELECTROENCEPHALOGRAM REPORT DATE OF EE04/24/2017. REFERRING PHYSICIAN: Dr. Montes De Oca. ELECTROENCEPHALOGRAPHIC EXAMINATION REPORT: INDICATION FOR EXAMINATION: This patient is a 51-year-old female being evaluated for seizure disorder. The patient apparently ran out of her anticonvulsant medication and had a possible seizure. EEG for further evaluation. AGE: [age]. EEG FINDINGS: A routine 21 channel awake digital EEG recording was accomplished utilizing the 10-20 international system with bipolar and referential montages. The background activity in the most alert resting state consists of a low to medium amplitude, fairly well- developed and well sustained 8 Hz activity over the posterior head regions. This posterior rhythm attenuates to eye opening. There is a small amount of low amplitude 18-20 Hz beta activity seen maximally over the anterior head regions. Muscle and movement artifact was observed in a few occasions during the tracing. Hyperventilation was not performed. Photic stimulation at flash frequencies of 2-30 Hz produced a good symmetrical occipital driving response. No epileptiform discharges were seen. IMPRESSION: This EEG is within normal limits for the patient's age. The EEG failed to reveal any focal, lateralized, or epileptiform abnormalities. Clinical correlation is recommended. MMODL / IJN: [id number] /
== END 2017-04-25 15:22 ==
LOC: EC 15:26 → 3OBS 17:45
PROVIDERS: ADMIT Family Medicine; ATTEND Family Medicine
DX: T51.0X1A Toxic effect of ethanol, accidental (unintentional), initial encounter (principal); G92 Toxic encephalopathy; Z91.14 Patient's other noncompliance with medication regimen; F10.129 Alcohol abuse with intoxication, unspecified; Y90.8 Blood alcohol level of 240 mg/100 ml or more; G40.909 Epilepsy, unspecified, not intractable, without status epilepticus; I10 Essential (primary) hypertension; F41.9 Anxiety disorder, unspecified; F31.9 Bipolar disorder, unspecified; J45.20 Mild intermittent asthma, uncomplicated; I48.91 Unspecified atrial fibrillation; F43.10 Post-traumatic stress disorder, unspecified; K76.9 Liver disease, unspecified; R29.810 Facial weakness; S00.83XA Contusion of other part of head, initial encounter; M51.27 Other intervertebral disc displacement, lumbosacral region; F17.210 Nicotine dependence, cigarettes, uncomplicated; Z86.711 Personal history of pulmonary embolism; Z79.899 Other long term (current) drug therapy; Z86.73 Personal history of transient ischemic attack (TIA), and cerebral infarction without residual deficits; R45.851 Suicidal ideations; Z83.3 Family history of diabetes mellitus; Z80.1 Family history of malignant neoplasm of trachea, bronchus and lung; W17.89XA Other fall from one level to another, initial encounter; Y92.008 Other place in unspecified non-institutional (private) residence as the place of occurrence of the external cause
CPT/HCPCS: 99285; 96375 ×2; 96361 ×6; 96365; 96366 ×2; 96367; 96372 ×2; 96376 ×2; 36415; 95819; 93005; 80053; 80185; 85025; 80306; 80320; 72131; 70450; G0378 ×3; J2060 ×2; J1165; J1644 ×2; J3411

== ENCOUNTER 2017-04-25 14:27 | Inpatient (IN) | payer MEDICARE, MEDICAID ==
[2017-04-25] MEDS ORDERED: MAG HYDROX/AL HYDROX/SIMETH 30 ML CUP PO PRN (15:52)
[2017-04-25] MEDS ORDERED: ACETAMINOPHEN TAB 325 MG TAB PO PRN (15:52)
[2017-04-25] MEDS ORDERED: MAGNESIUM HYDROXIDE 2,400 MG/10 ML CUP PO PRN (15:52)
[2017-04-25] MEDS ORDERED: LORazepam 2 MG/ML INJ IM PRN (16:14)
[2017-04-25 16:40] VITALS: BMI 22.4
[2017-04-25] MEDS: chlordiazePOXIDE 5 MG CAPSULE PO SCH ×2 (16:49→21:19)
[2017-04-25] MEDS ORDERED: PHENYTOIN SODIUM EXTENDED 100 MG CAP PO SCH (21:00)
[2017-04-25] MEDS: OXcarbazepine 300 MG TAB PO SCH (21:19)
[2017-04-25] MEDS: QUEtiapine 25 MG TAB PO SCH (21:19)
[2017-04-26] MEDS: QUEtiapine 25 MG TAB PO SCH (08:36)
[2017-04-26] MEDS: chlordiazePOXIDE 5 MG CAPSULE PO SCH ×3 (08:37→20:27)
[2017-04-26] MEDS: LIDOCAINE 5% PATCH TOPICAL SCH (08:37)
[2017-04-26] MEDS: ETODOLAC 300 MG CAPSULE PO SCH ×3 (08:37→20:25)
[2017-04-26] MEDS: OXcarbazepine 300 MG TAB PO SCH ×2 (08:37→20:25)
[2017-04-26] MEDS: ATENOLOL 25 MG TAB PO SCH (08:37)
[2017-04-26] MEDS: LORazepam 1 MG TAB PO PRN ×2 (08:43→21:42)
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
[2017-04-26 09:00] LABS: ALT 40 U/L (9-52); AST 44 U/L (14-36); Albumin 4.4 g/dL (3.5-5.0); Alkaline Phosphatase 99 U/L (38-126); Anion Gap 12 mmol/L; Blood Urea Nitrogen 9 mg/dL (7-17); Calcium 9.4 mg/dL (8.4-10.2); Carbon Dioxide 28 mmol/L (22-30); Chloride 100 mmol/L (98-107); Cholesterol 245 mg/dL (<200); Glucose 86 mg/dL (74-99); HDL Cholesterol 85 mg/dL (40-60); LDL Cholesterol,Calculated 136 mg/dL (0-99); Sodium 140 mmol/L (137-145); Total Bilirubin 0.8 mg/dL (0.2-1.3); Total Protein 7.2 g/dL (6.3-8.2); Triglycerides 122 mg/dL (<150)
[2017-04-26] MEDS ORDERED: PHENYTOIN SODIUM EXTENDED 100 MG CAP PO SCH (09:00)
[2017-04-26] MEDS ORDERED: VENLAFAXINE HCL ER 150 MG CAP PO SCH (09:00)
[2017-04-26 09:24] LABS: Basophils # (A) 0.1 k/uL (0-0.2); Basophils % (A) 1 %; Eosinophils # (A) 0.3 k/uL (0-0.7); Eosinophils % (A) 7 %; HCT 46.7 % (34.0-46.0); HGB 15.1 gm/dL (11.4-16.0); Lymphocytes # (A) 1.4 k/uL (1.0-4.8); Lymphocytes % (A) 36 %; MCH 32.7 pg (25.0-35.0); MCHC 32.2 g/dL (31.0-37.0); MCV 101.5 fL (80.0-100.0); Mean Platelet Volume 7.7; Monocytes # (A) 0.2 k/uL (0-1.0); Monocytes % (A) 4 %; Neutrophils % (A) 49 %; Platelet Count 219 k/uL (150-450); RDW 12.3 % (11.5-15.5)
[2017-04-26] MEDS: DIVALPROEX ER 500 MG TAB.ER.24H PO SCH (09:36)
--- NOTE | 2017-04-26 15:47 | P.CONS ---
History of Present Illness - Reason for Consult Consult date: 04/26/17 Medical management - History of Present Illness This is a 51-year-old female patient of Dr. Craig with a past medical history of hypertension, generalized anxiety disorder, recurrent depression, bipolar disorder, alcohol abuse, seizure disorder. Patient initially presented to [facility] emergency center on April 23. She had been noncompliant and not taking her medications for the past week including her blood pressure medicine. Patient was brought in for evaluation of a seizure that happened that day. She had not been taking her Trileptal. Patient was initially given Dilantin and was started on Ativan and Librium for alcohol intoxication. CAT scan of the brain was negative for acute abnormality or hematoma. Patient was also seen by neurology, Dr. Rankin. EEG was within normal limits. He recommended resuming Trileptal and Dilantin. Patient was placed on the observation unit and seen by psychiatry and subsequently admitted to the mental health unit as a voluntary admission. Noted patient has an elevated TSH, free T4, T3 and Thyroid peroxidase antibody ordered. She denies any new complaints. She is eating well without any nausea or vomiting. There has been no seizure activity. Review of Systems All systems: negative Constitutional: Reports fatigue, Denies anorexia, Denies chills, Denies fever, Denies poor appetite Eyes: denies blurred vision, denies pain Ears, nose, mouth and throat: Denies headache, Denies sore throat Cardiovascular: Denies chest pain, Denies decreased exercise tolerance, Denies dyspnea on exertion, Denies irregular heart beat, Denies leg edema, Denies lightheadedness, Denies shortness of breath, Denies syncope Respiratory: Denies cough, Denies cough with sputum, Denies dyspnea, Denies excessive sputum, Denies hemoptysis, Denies home oxygen, Denies wheezing Gastrointestinal: Denies abdominal pain, Denies bloating, Denies diarrhea, Denies nausea, Denies vomiting Genitourinary: Denies dysuria, Denies hematuria Musculoskeletal: Denies myalgias Integumentary: Denies pruritus, Denies rash Neurological: Denies numbness, Denies weakness Psychiatric: Reports depression, Denies anxiety Endocrine: Denies fatigue, Denies weight change Past Medical History Past Medical History: Atrial Fibrillation, Asthma, CVA/TIA, Hypertension, Liver Disease, Pulmonary Embolus (PE), Seizure Disorder Additional Past Medical History / Comment(s): Pt recently admitted to [facility] 12/18 with toxic encephalopathy, R facial droop. Other hx: Alcohol abuse- past alcohol withdrawals/DTs/seizure, enlarged liver. History of Any Multi-Drug Resistant Organisms: None Reported Past Surgical History: No Surgical Hx Reported Past Anesthesia/Blood Transfusion Reactions: No Reported Reaction Past Psychological History: Anxiety, Bipolar, Depression, PTSD Additional Psychological History / Comment(s): Goes to [facility] every week and sees a councelor named Wilfred. Sees a Dr there every month. Pt denies current suicidal thoughts/plans but states about 1 month ago she had thoughts of suicide but no plan/no action. Pt lives with her significant other. She has a L ecchymotic eye. Double Back Operator asked pt about any type of abuse-"I don't want to talk about it." Pt declines any social service or case management intervention for any saftety issues. See ER physician documentation. Smoking Status: Current every day smoker Past Alcohol Use History: Abuse, Daily, Heavy Additional Past Alcohol Use History / Comment(s): Drinks 4-5 cocktails a day. Drinks primarily 1 pint of vodka a day. Has been smoking for 30 years about a pack a day. Last drank last night. Past Drug Use History: None Reported - Past Family History Mother Family Medical History: CVA/TIA, Diabetes Mellitus Additional Family Medical History / Comment(s): Mother is alive at age 82 with history of stroke. Father Family Medical History: Cancer Additional Family Medical History / Comment(s): from lung cancer. Father was a smoker. Brother(s) Additional Family Medical History / Comment(s): Patient has one brother age 52 with history of asthma. Patient has one sister age 43 with asthma. Medications and Allergies Home Medications Medication Instructions Recorded Confirmed Type Atenolol [Tenormin] 25 mg PO DAILY #30 tab 12/19/16 04/25/17 Rx OXcarbazepine [Trileptal] 300 mg PO BID #60 tablet 12/21/16 04/25/17 Rx Acamprosate Calcium [Campral] 666 mg PO TID 04/23/17 04/25/17 History QUEtiapine XR [SEROquel XR] 150 mg PO W/SUPPER 04/23/17 04/25/17 History Venlafaxine HCl ER [Effexor XR] 150 mg PO QAM 04/23/17 04/25/17 History Etodolac [Lodine XR] 400 mg PO DAILY #30 tab 04/25/17 04/25/17 Rx Lidocaine 5% Patch [Lidoderm 5% 1 patch TOPICAL DAILY #10 patch 04/25/17 Rx Patch] Phenytoin Sodium Extended 100 mg PO HS cap 04/25/17 04/25/17 Rx [Dilantin] Phenytoin Sodium Extended 200 mg PO DAILY cap 04/25/17 04/25/17 Rx [Dilantin] chlordiazePOXIDE HCL [Librium] 5 mg PO TID cap 04/25/17 04/25/17 Rx Allergies Allergy/AdvReac Type Severity Reaction Status Date / Time No Known Allergies Allergy Verified 04/25/17 15:46 Physical Exam Vitals: Vital Signs Temp Pulse Pulse Resp BP BP Pulse Ox 04/26/17 08:35 97 16 108/74 04/26/17 06:41 97.5 F L 79 16 108/78 04/25/17 16:04 98.2 F 96 20 115/75 97 Gen: This is a 51-year-old female patient. She is cooperative and appears to be in no acute distress. HEENT: Head is atraumatic, normocephalic. Pupils equal, round. Sclerae is anicteric. NECK: Supple. No JVD. No lymphadenopathy. No thyromegaly. LUNGS: Clear to auscultation. No wheezes or rhonchi. No intercostal retractions. HEART: Regular rate and rhythm. No murmur. ABDOMEN: Soft. Bowel sounds are present. No masses. No tenderness. EXTREMITIES: No pedal edema. No calf tenderness. NEUROLOGICAL: Patient is awake, alert and oriented x3. Cranial nerves 2 through 12 are grossly intact. Results CBC & Chem 7: 04/26/17 08:31 04/26/17 08:31 Labs: Abnormal Lab Results - Last 24 Hours (Table) 04/26/17 04/26/17 Range/Units 08:31 08:31 Hct 46.7 H (34.0-46.0) % MCV 101.5 H (80.0-100.0) fL AST 44 H (14-36) U/L Cholesterol 245 H (<200) mg/dL LDL Cholesterol, Calc 136 H (0-99) mg/dL HDL Cholesterol 85 H (40-60) mg/dL TSH 6.180 H (0.465-4.680) mIU/L Assessment and Plan Plan: 1. Recurrent depression and alcohol abuse. Patient admitted to the mental health unit. Continue current plan per psychiatry. 2. Hypertension. Continue atenolol 25 mg daily. 3. Mild intermittent asthma, stable. 4. Tobacco dependence. 5. Bipolar disorder 6. Right flank pain. Lidocaine patch. 7. Elevated TSH. Further evaluation and patient will need follow-up TSH in 6 weeks. Impression and plan of care have been directed as dictated by the signing physician. Radha Holguin nurse practitioner acting as scribe for signing physician.
[2017-04-26 16:07] LABS: T4, Free (Free Thyroxine) 0.72 ng/dL (0.78-2.19)
[2017-04-26 18:28] LABS: Hemoglobin A1C 4.8 % (4.0-6.0)
[2017-04-27 06:55] VITALS: RESP 16
[2017-04-27] MEDS: ATENOLOL 25 MG TAB PO SCH (08:48)
[2017-04-27] MEDS: LIDOCAINE 5% PATCH TOPICAL SCH (08:49)
[2017-04-27] MEDS: DIVALPROEX ER 500 MG TAB.ER.24H PO SCH (08:49)
[2017-04-27] MEDS: ETODOLAC 300 MG CAPSULE PO SCH ×3 (08:49→20:23)
[2017-04-27] MEDS: chlordiazePOXIDE 5 MG CAPSULE PO SCH ×3 (08:49→20:23)
[2017-04-27] MEDS: OXcarbazepine 300 MG TAB PO SCH ×2 (08:50→20:23)
--- NOTE | 2017-04-27 12:07 | P.PN ---
Progress Note - Text Progress Note Date: 04/27/17 Patient was seen for a follow-up examination. She looks brighter and said she also feels brighter. She slept well last night. She has been taking her medications and attends her groups. Denies any adverse effects from medication. Did not have any seizures. She is somewhat eager to go home. She was advised to speak with her social worker assistant who has to make some calls before we can decide anything. She agreed with this plan. This is a quite ambulatory female with lot better hygiene today. She does not show any psychomotor agitation or retardation. Her speech is spontaneous relevant and goal directed. Her mood is euthymic to cheerful and affect is appropriate. She denies hallucinations and delusional thinking suicidal and homicidal ideas. She is well oriented with adequate memory concentration Gen. knowledge etc. Plan: Continue Depakote and Trileptal. Continue therapies.
[2017-04-28] MEDS ORDERED: LEVOTHYROXINE 50 MCG TAB PO SCH (06:30)
[2017-04-28 06:32] VITALS: BP 89/54; PULSE 73; TEMP 97.7
[2017-04-28] MEDS: ATENOLOL 25 MG TAB PO SCH (08:42)
[2017-04-28] MEDS: ETODOLAC 300 MG CAPSULE PO SCH ×2 (08:43→16:48)
[2017-04-28] MEDS: DIVALPROEX ER 500 MG TAB.ER.24H PO SCH (08:45)
[2017-04-28] MEDS: OXcarbazepine 300 MG TAB PO SCH (08:45)
[2017-04-28] MEDS: LIDOCAINE 5% PATCH TOPICAL SCH (08:46)
[2017-04-28] MEDS: chlordiazePOXIDE 5 MG CAPSULE PO SCH (08:46)
--- NOTE | 2017-04-28 12:00 | P.DS ---
Providers Date of admission: 04/25/17 15:23 Expected date of discharge: 04/28/17 Attending physician: Zaina Elliott Consults: 04/25/17 15:52 Consult Physician Routine Consulting Provider: Hali Kessler Consult Reason/Comments: follow up H & P Do you want consulting provider notified?: Yes Primary care physician: Terrell Craig - Discharge Diagnosis(es) (1) Bipolar 1 disorder Current Visit: Yes Status: Acute Hospital Course: Patient had her physical examination psychiatric evaluation and psychosocial evaluation. She was given Librium to prevent withdrawal symptoms and she did not have any. She was started on Depakote and Trileptal for seizures and mood stabilization. She did well on these medications and did not need any changes in her dosage. She did not have any seizures. She improved quite rapidly, has been able to attend to her basic needs, was attending her groups, socializing with peers and interacting with staff and was free of suicidal and homicidal thoughts. She was started on Synthroid since her T4 level was low and TSH was high. The transition social worker contacted the patient's partner who was very receptive towards taking the patient back home since she had improved so much. Condition on discharge: This is a white ambulatory female with good hygiene. She is polite and friendly cheerful and cooperative. She does not show any psychomotor agitation or retardation. Her speech is spontaneous relevant and goal-directed. Affect is appropriate. She denies hallucinations delusional thinking suicidal and homicidal ideas. She is well oriented with good memory and fund of knowledge concentration etc. Her insight and judgment have improved quite substantially. She agreed to take her medications, go to AA meetings, not to drink alcohol or abuse drugs etc. Diagnosis on discharge: Unspecified bipolar and related disorder F 31.9. Alcohol use disorder severe F 10.20. NKDA. Seizure disorder. Hypothyroidism. Plan - Discharge Summary Discharge Rx Participant: Yes New Discharge Prescriptions: New Acetaminophen Tab [Tylenol] 650 mg PO Q4HR PRN tab PRN Reason: Pain/Discomfort Divalproex ER [Depakote ER] 1,000 mg PO DAILY 30 Days #30 tab.er.24h Levothyroxine Sodium [Synthroid] 50 mcg PO DAILY@0630 30 Days #30 tab Magnesium Hydroxide [Milk of Magnesia Concentrate] 2,400 mg PO DAILY PRN ml PRN Reason: Constipation Continue Acamprosate Calcium [Campral] 666 mg PO TID Atenolol [Tenormin] 25 mg PO DAILY 30 Days #30 tab Etodolac [Lodine XR] 400 mg PO DAILY 30 Days #30 tab OXcarbazepine [Trileptal] 300 mg PO BID 30 Days #60 tablet Discontinued Venlafaxine HCl ER [Effexor XR] 150 mg PO QAM QUEtiapine XR [SEROquel XR] 150 mg PO W/SUPPER chlordiazePOXIDE HCL [Librium] 5 mg PO TID cap Phenytoin Sodium Extended [Dilantin] 200 mg PO DAILY cap Phenytoin Sodium Extended [Dilantin] 100 mg PO HS cap Lidocaine 5% Patch [Lidoderm 5% Patch] 1 patch TOPICAL DAILY #10 patch Discharge Medication List Acamprosate Calcium [Campral] 666 mg PO TID 04/23/17 [History] Acetaminophen Tab [Tylenol] 650 mg PO Q4HR PRN tab 04/28/17 [Rx] Atenolol [Tenormin] 25 mg PO DAILY 30 Days #30 tab 04/28/17 [Rx] Divalproex ER [Depakote ER] 1,000 mg PO DAILY 30 Days #30 tab.er.24h 04/28/17 [ Rx] Etodolac [Lodine XR] 400 mg PO DAILY 30 Days #30 tab 04/28/17 [Rx] Levothyroxine Sodium [Synthroid] 50 mcg PO DAILY@0630 30 Days #30 tab 04/28/17 [ Rx] Magnesium Hydroxide [Milk of Magnesia Concentrate] 2,400 mg PO DAILY PRN ml 04/16 [Rx] OXcarbazepine [Trileptal] 300 mg PO BID 30 Days #60 tablet 04/28/17 [Rx] Ambulatory/Diagnostic Orders: Miscellaneous Lab Order [LAB.AMB] Time Frame: 1 Week, Facility: [facility], Location: [facility] [place] TSH, 3rd Generation [LAB.AMB] Time Frame: 1 Month, Facility: [facility] , Location: [facility] [place] Activity/Diet/Wound Care/Special Instructions: Repeat TSH with Dr Craig in 6 weeks. Discharge Disposition: HOME SELF-CARE
[2017-04-28] MEDS ORDERED: chlordiazePOXIDE 5 MG CAPSULE PO SCH (21:00)
== END 2017-04-28 18:30 | disposition home or self-care (01) | DRG 885 ==
LOC: 3MHU 15:23
PROVIDERS: ADMIT Psychiatry & Neurology Psychiatry; ATTEND Psychiatry & Neurology Psychiatry
DX: F31.9 Bipolar disorder, unspecified (principal); R16.0 Hepatomegaly, not elsewhere classified; G40.909 Epilepsy, unspecified, not intractable, without status epilepticus; E03.9 Hypothyroidism, unspecified; F10.129 Alcohol abuse with intoxication, unspecified; F17.200 Nicotine dependence, unspecified, uncomplicated; F41.1 Generalized anxiety disorder; F43.10 Post-traumatic stress disorder, unspecified; I10 Essential (primary) hypertension; J45.20 Mild intermittent asthma, uncomplicated; Z79.899 Other long term (current) drug therapy; Z91.410 Personal history of adult physical and sexual abuse; Z91.19 Patient's noncompliance with other medical treatment and regimen; Z86.73 Personal history of transient ischemic attack (TIA), and cerebral infarction without residual deficits; Z86.711 Personal history of pulmonary embolism
CPT/HCPCS: 80053; 80061; 83036; 84439; 84443; 84481; 85025; 86376

== ENCOUNTER 2017-09-26 18:18 | Emergency (ER) | payer MEDICARE, OTHER ==
[2017-09-26 19:07] LABS: Amphetamine Screen,Urine Not Detected (NotDetected); Barbiturate Screen,Urine Not Detected (NotDetected); Benzodiazepines Screen,Urine Not Detected (NotDetected); Cocaine Screen,Urine Not Detected (NotDetected); Methadone Screen, Urine Not Detected (NotDetected); Opiate Screen,Urine Not Detected (NotDetected); Oxycodone Screen, Urine Not Detected (NotDetected); Phencyclidine Screen,Urine Not Detected (NotDetected); Tricyclic Antidepressant,Urine Not Detected (NotDetected); Urn Cannabinoid Scrn Not Detected (NotDetected)
--- NOTE | 2017-09-26 19:31 | ED ---
Psych HPI - General Source: patient, EMS Mode of arrival: EMS <Fidelia Peraza - Last Filed: 09/27/17 04:04> <Sumanth Tiwari - Last Filed: 09/27/17 13:49> - General Chief Complaint: Psychiatric Symptoms Stated Complaint: ETOH Time Seen by Provider: 09/26/17 19:01 - History of Present Illness Initial Comments: 52-year-old female patient brought in for suicidal ideation and alcohol intoxication. Patient reports that she is suicidal, states that she feels that way every day. Patient states she has a million plans that she would use to take her life. She denies any self-harm today. States she has been drinking, does report drinking on a daily basis. Any use of street drugs. Denies any current physical symptoms or concerns. Patient denies any recent rash, fever, chills, shortness breath, chest pain, abdominal pain, nausea, vomiting, diarrhea , constipation, back pain, numbness, tingling, dizziness, weakness, hematuria, dysuria, urinary urgency, urinary frequency, headache, visual changes, or any other complaints. (Fidelia Peraza) - Related Data Home Medications Medication Instructions Recorded Confirmed Albuterol Inhaler [Ventolin Hfa 1 - 2 puff INHALATION RT-Q6H PRN 09/27/17 Inhaler] Levothyroxine Sodium [Synthroid] 50 mcg PO DAILY 09/27/17 09/27/17 Previous Rx's Medication Instructions Recorded Atenolol [Tenormin] 25 mg PO DAILY 30 Days #30 tab 04/28/17 OXcarbazepine [Trileptal] 300 mg PO BID 30 Days #60 tablet 04/28/17 Allergies Allergy/AdvReac Type Severity Reaction Status Date / Time No Known Allergies Allergy Verified 09/27/17 09:27 Review of Systems ROS Other: All systems not noted in ROS Statement are negative. <Fidelia Peraza - Last Filed: 09/27/17 04:04> ROS Other: All systems not noted in ROS Statement are negative. <Sumanth Tiwari - Last Filed: 09/27/17 13:49> ROS Statement: Those systems with pertinent positive or pertinent negative responses have been documented in the HPI. Past Medical History Past Medical History: Atrial Fibrillation, Asthma, CVA/TIA, Hypertension, Liver Disease, Pulmonary Embolus (PE), Seizure Disorder Additional Past Medical History / Comment(s): Pt recently admitted to [facility] 12/18 with toxic encephalopathy, R facial droop. Other hx: Alcohol abuse- past alcohol withdrawals/DTs/seizure, enlarged liver. History of Any Multi-Drug Resistant Organisms: None Reported Past Surgical History: No Surgical Hx Reported Past Anesthesia/Blood Transfusion Reactions: No Reported Reaction Past Psychological History: Anxiety, Bipolar, Depression, PTSD Smoking Status: Current every day smoker Past Alcohol Use History: Abuse, Daily, Heavy Past Drug Use History: None Reported - Past Family History Mother Family Medical History: CVA/TIA, Diabetes Mellitus Additional Family Medical History / Comment(s): Mother is alive at age 82 with history of stroke. Father Family Medical History: Cancer Additional Family Medical History / Comment(s): from lung cancer. Father was a smoker. Brother(s) Additional Family Medical History / Comment(s): Patient has one brother age 52 with history of asthma. Patient has one sister age 43 with asthma. <Fidelia Peraza M - Last Filed: 09/27/17 04:04> General Exam Limitations: no limitations General appearance: alert, in no apparent distress, appears intoxicated, other ( This is a well-developed, well-nourished adult female patient in no acute distress. Vital signs upon presentation are temperature 98.4F, pulse 122, respirations 20, blood pressure 123/80, pulse ox 99% on room air.) Eye exam: Present: normal appearance, PERRL, EOMI. Absent: scleral icterus, conjunctival injection, periorbital swelling Respiratory exam: Present: normal lung sounds bilaterally. Absent: respiratory distress, wheezes, rales, rhonchi, stridor Cardiovascular Exam: Present: regular rate, normal rhythm, normal heart sounds. Absent: systolic murmur, diastolic murmur, rubs, gallop, clicks GI/Abdominal exam: Present: soft, normal bowel sounds. Absent: distended, tenderness, guarding, rebound, rigid Neurological exam: Present: alert, oriented X3, CN II-XII intact Psychiatric exam: Present: depressed, suicidal ideation. Absent: homicidal ideation Skin exam: Present: warm, dry, intact, normal color. Absent: rash <Fidelia Peraza M - Last Filed: 09/27/17 04:04> Course <Fidelia Peraza - Last Filed: 09/27/17 04:04> <Sumanth Tiwari - Last Filed: 09/27/17 13:49> Vital Signs 09/26/17 09/27/17 18:28 06:55 Temperature 98.4 F 98.2 F Pulse Rate 122 H 102 H Respiratory 20 17 Rate Blood Pressure 123/80 122/73 O2 Sat by Pulse 99 96 Oximetry - Reevaluation(s) Reevaluation #1: 09/27/17 13:47 The patient rested comfortably throughout the evening and morning. She was evaluated by the psychiatric service after sobriety was determined that. She currently is not suicidal or homicidal a resource for others. She will be discharged (Sumanth Tiwari) Medical Decision Making <Fidelia Peraza - Last Filed: 09/27/17 04:04> <Sumanth Tiwari - Last Filed: 09/27/17 13:49> - Medical Decision Making 52-year-old female patient presented to the emergency department today intoxicated ankle planning of suicidal ideation. Physical examination was unremarkable. Patient did smell of alcohol, does report using alcohol daily. Patient will be sober at 0830 09/27/2017, she will be evaluated by emergency psychiatric services at that time. Care will be handed over to my attending Dr. Fontanez to monitor patient until shift change. (Fidelia Peraza) - Lab Data Lab Results 09/26/17 Range/Units 18:52 Urine Opiates Screen Not Detected (NotDetected) Ur Oxycodone Screen Not Detected (NotDetected) Urine Methadone Screen Not Detected (NotDetected) Ur Propoxyphene Screen Not Detected (NotDetected) Ur Barbiturates Screen Not Detected (NotDetected) U Tricyclic Antidepress Not Detected (NotDetected) Ur Phencyclidine Scrn Not Detected (NotDetected) Ur Amphetamines Screen Not Detected (NotDetected) U Methamphetamines Scrn Not Detected (NotDetected) U Benzodiazepines Scrn Not Detected (NotDetected) Urine Cocaine Screen Not Detected (NotDetected) U Marijuana (THC) Screen Not Detected (NotDetected) Disposition <Fidelia Peraza - Last Filed: 09/27/17 04:04> Is patient prescribed a controlled substance at d/c from ED?: No <TeSumanth - Last Filed: 09/27/17 13:49> Clinical Impression: Adjustment reaction, Alcohol intoxication Disposition: HOME SELF-CARE Condition: Good Instructions: Alcohol Intoxication (ED), Abuse of Alcohol (ED), Mood Disorders (ED) Referrals: Terrell Craig DO [Primary Care Provider] - 1-2 days
[2017-09-27] MEDS ORDERED: LORazepam 1 MG TAB PO STA (11:54)
[2017-09-27 13:59] VITALS: BP 112/80; PULSE 90; RESP 16; TEMP 98
== END 2017-09-27 13:59 | disposition home or self-care (01) ==
LOC: EC 18:18
DX: F43.20 Adjustment disorder, unspecified (principal); F10.129 Alcohol abuse with intoxication, unspecified; R45.851 Suicidal ideations; J45.909 Unspecified asthma, uncomplicated; F17.200 Nicotine dependence, unspecified, uncomplicated; Z86.73 Personal history of transient ischemic attack (TIA), and cerebral infarction without residual deficits; Z79.899 Other long term (current) drug therapy
CPT/HCPCS: 80306; 82075; 99285

== ENCOUNTER 2022-05-30 19:25 | Inpatient (IN) | payer MEDICARE, OTHER ==
[2022-05-30] MEDS ORDERED: SODIUM CHLORIDE 0.9% 500 ML 500 ML IV ONE (19:55)
[2022-05-30] MEDS ORDERED: SODIUM CHLORIDE 0.9% 1,000 ML IV ONE ×2 (19:55→21:12)
--- NOTE | 2022-05-30 19:58 | ED ---
General Adult HPI - General Chief complaint: Alcohol Stated complaint: ETOH & Hip Pain Time Seen by Provider: 05/30/22 19:30 Source: patient, RN notes reviewed, old records reviewed Mode of arrival: EMS - History of Present Illness Initial comments: This a 56-year-old female presents emergency department stating that about 2 weeks ago she was drinking and fell onto her left hip and it continues to her even though she can ambulate and has been getting around she came in today to have it checked out. Patient states she has drank quite a bit today but not as much as she normally does. Patient denies any chest pain or difficulty breathing. Patient denies any abdominal pain patient denies nausea vomiting diarrhea. Patient states occasionally feels a little lightheaded but currently she feels fine. Patient denies any headache patient denies numbness weakness. - Related Data Home Medications Medication Instructions Recorded Confirmed Albuterol Inhaler [Ventolin Hfa 1 - 2 puff INHALATION RT-Q6H PRN 09/27/17 05/30/22 Inhaler] Allergies Allergy/AdvReac Type Severity Reaction Status Date / Time No Known Allergies Allergy Verified 05/30/22 21:07 Review of Systems ROS Statement: Those systems with pertinent positive or pertinent negative responses have been documented in the HPI. ROS Other: All systems not noted in ROS Statement are negative. Past Medical History Past Medical History: Atrial Fibrillation, Asthma, CVA/TIA, Hypertension, Liver Disease, Pulmonary Embolus (PE), Seizure Disorder Additional Past Medical History / Comment(s): Pt recently admitted to [facility] 12/18/16 with toxic encephalopathy, R facial droop. Other hx: Alcohol abuse-past alcohol withdrawals/DTs/seizure, enlarged liver. History of Any Multi-Drug Resistant Organisms: None Reported Past Surgical History: No Surgical Hx Reported Past Anesthesia/Blood Transfusion Reactions: No Reported Reaction Past Psychological History: Anxiety, Bipolar, Depression, PTSD Past Alcohol Use History: Abuse, Daily, Heavy Past Drug Use History: None Reported - Past Family History Mother Family Medical History: CVA/TIA, Diabetes Mellitus Additional Family Medical History / Comment(s): Mother is alive at age 82 with history of stroke. Father Family Medical History: Cancer Additional Family Medical History / Comment(s): from lung cancer. Father was a smoker. Brother(s) Additional Family Medical History / Comment(s): Patient has one brother age 52 with history of asthma. Patient has one sister age 43 with asthma. General Exam - General Exam Comments Initial Comments: GENERAL: Patient is well-developed and well-nourished. Patient is nontoxic and well- hydrated and is in no acute distress. Patient does appear intoxicated ENT: Neck is soft and supple. No significant lymphadenopathy is noted. Oropharynx is clear. Moist mucous membranes. Neck has full range of motion without e liciting any pain. EYES: The sclera were anicteric and conjunctiva were pink and moist. Extraocular movements were intact and pupils were equal round and reactive to light. Eyelids were unremarkable. PULMONARY: Unlabored respirations. Good breath sounds bilaterally. No audible rales rhonchi or wheezing was noted. CARDIOVASCULAR: There is a regular rate and rhythm without any murmurs gallops or rubs. ABDOMEN: Soft and nontender with normal bowel sounds. SKIN: Skin is clear with no lesions or rashes and otherwise unremarkable. NEUROLOGIC: Patient is alert and oriented x3. Cranial nerves II through XII are grossly intact. Motor and sensory are also intact. Normal speech, volume and content. Symmetrical smile. MUSCULOSKELETAL: Normal extremities with adequate strength and full range of motion. I did not elicit any pain to the hip area LYMPHATICS: No significant lymphadenopathy is noted PSYCHIATRIC: Normal psychiatric evaluation. Course Vital Signs 05/30/22 19:28 Temperature 98.4 F Pulse Rate 114 H Respiratory 16 Rate Blood Pressure 121/85 O2 Sat by Pulse 93 L Oximetry Medical Decision Making - Medical Decision Making Was pt. sent in by a medical professional or institution (, PA, [employer] [facility], urgent care, hospital, or retirement...) When possible be specific @ -No Did you speak to anyone other than the patient for history (EMS, parent, family, police, friend...)? What history was obtained from this source @ -No Did you review nursing and triage notes (agree or disagree)? Why? @ -I reviewed and agree with nursing and triage notes Were old charts reviewed (outside hosp., previous admission, EMS record, old EKG, old radiological studies, urgent care reports/EKG's, retirement records)? Report findings @ -No old charts were reviewed Differential Diagnosis (chest pain, altered mental status, abdominal pain women, abdominal pain men, vaginal bleeding, weakness, fever, dyspnea, syncope, headache, dizziness, GI bleed, back pain, seizure, CVA, palpatations, mental health, musculoskeletal)? @ -Differential Musculoskeletal Muscular strain, contusion, ligament sprain, fracture, arthritis, septic arthritis, bursitis, cellulitis, muscle spasm, nerve compression, DVT, arterial occlusion, herpes zoster, electrolyte abnormality, tumor.... This is not meant to be in all inclusive list EKG interpreted by me (3pts min.). @ -As above X-rays interpreted by me (1pt min.). @ -X-ray in the pelvis and hip are interpreted by me. It looks like possible CT interpreted by me (1pt min.). @ -None done U/S interpreted by me (1pt. min.). @ -None done What testing was considered but not performed or refused? (CT, X-rays, U/S, labs)? Why? @ -None What meds were considered but not given or refused? Why? @ -None Did you discuss the management of the patient with other professionals (professionals i.e. , PA, [employer] [facility], lab, RT, psych nurse, social work faculty member, combat systems officer, teacher, electrical engineering drafting officer, case coordinator)? Give summary @ -Spoke with Dr. Martinez he will follow-up on the hip CT Was smoking cessation discussed for >3mins.? @ -No Was critical care preformed (if so, how long)? @ -No Were there social determinants of health that impacted care today? How? (Homelessness, low income, unemployed, alcoholism, drug addiction, transportation, low edu. Level, literacy, decrease access to med. care, retirement, rehab)? @ -No Was there de-escalation of care discussed even if they declined (Discuss DNR or withdrawal of care, Hospice)? DNR status @ -No What co-morbidities impacted this encounter? (DM, HTN, Smoking, COPD, CAD, Cancer, CVA, ARF, Chemo, Hep., AIDS, mental health diagnosis, sleep apnea, morbid obesity)? @ -None Was patient admitted / discharged? Hospital course, mention meds given and route, prescriptions, significant lab abnormalities, going to OR and other pertinent info. @ -Patient was able to ambulate to the bathroom on multiple occasions. Patient's alcohol was 438 I spoke with some physicians agreed to admit the patient and will follow-up on hip x-ray and consult or thoracic needed Undiagnosed new problem with uncertain prognosis? @ -No Drug Therapy requiring intensive monitoring for toxicity (Heparin, Nitro, Insulin, Cardizem)? @ -No Were any procedures done? @ -No Diagnosis/symptom? @ -Intoxication Acute, or Chronic, or Acute on Chronic? @ -Acute Uncomplicated (without systemic symptoms) or Complicated (systemic symptoms)? @ -Complicated Side effects of treatment? @ -No Exacerbation, Progression, or Severe Exacerbation? @ -No Poses a threat to life or bodily function? How? (Chest pain, USA, RI, pneumonia, PE, COPD, DKA, ARF, appy, cholecystitis, CVA, Diverticulitis, Homicidal, Suicidal, threat to staff... and all critical care pts) @ -No - Lab Data Result diagrams: 05/30/22 20:11 05/30/22 20:11 Lab Results 05/30/22 05/30/22 Range/Units 20:11 20:11 WBC 3.2 L (3.8-10.6) k/uL RBC 3.78 L (3.80-5.40) m/uL Hgb 13.3 (11.4-16.0) gm/dL Hct 39.0 (34.0-46.0) % MCV 103.1 H (80.0-100.0) fL MCH 35.2 H (25.0-35.0) pg MCHC 34.2 (31.0-37.0) g/dL RDW 14.1 (11.5-15.5) % Plt Count 115 L (150-450) k/uL MPV 7.8 Neutrophils % 50 % Lymphocytes % 38 % Monocytes % 5 % Eosinophils % 4 % Basophils % 1 % Neutrophils # 1.6 (1.3-7.7) k/uL Lymphocytes # 1.2 (1.0-4.8) k/uL Monocytes # 0.2 (0-1.0) k/uL Eosinophils # 0.1 (0-0.7) k/uL Basophils # 0.0 (0-0.2) k/uL Macrocytosis Slight Sodium 145 (137-145) mmol/L Potassium 3.8 (3.5-5.1) mmol/L Chloride 110 H (98-107) mmol/L Carbon Dioxide 22 (22-30) mmol/L Anion Gap 13 mmol/L BUN 17 (7-17) mg/dL Creatinine 0.38 L (0.52-1.04) mg/dL Est GFR (CKD-EPI)AfAm >90 (>60 ml/min/1.73 sqM) Est GFR (CKD-EPI)NonAf >90 (>60 ml/min/1.73 sqM) Glucose 85 (74-99) mg/dL Calcium 7.9 L (8.4-10.2) mg/dL Magnesium 1.6 (1.6-2.3) mg/dL Total Bilirubin 0.5 (0.2-1.3) mg/dL AST 158 H (14-36) U/L ALT 67 H (4-34) U/L Alkaline Phosphatase 124 (38-126) U/L Total Protein 6.8 (6.3-8.2) g/dL Albumin 4.2 (3.5-5.0) g/dL Serum Alcohol 438 H* mg/dL Disposition Clinical Impression: Alcohol intoxication, Hip pain Disposition: ADMITTED IP TO THIS HOSP Referrals: Flaquito Humphreys MD [Primary Care Provider] - 1-2 days Time of Disposition: 21:06
[2022-05-30 20:23] LABS: Basophils % (A) 1 %; Eosinophils # (A) 0.1 k/uL (0-0.7); Eosinophils % (A) 4 %; HGB 13.3 gm/dL (11.4-16.0); Lymphocytes # (A) 1.2 k/uL (1.0-4.8); Lymphocytes % (A) 38 %; MCH 35.2 pg (25.0-35.0); MCHC 34.2 g/dL (31.0-37.0); MCV 103.1 fL (80.0-100.0); Macrocytosis Slight; Mean Platelet Volume 7.8; Monocytes # (A) 0.2 k/uL (0-1.0); Monocytes % (A) 5 %; Neutrophils # (A) 1.6 k/uL (1.3-7.7); Neutrophils % (A) 50 %; Platelet Count 115 k/uL (150-450); RBC 3.78 m/uL (3.80-5.40); RDW 14.1 % (11.5-15.5); WBC 3.2 k/uL (3.8-10.6)
[2022-05-30 20:35] LABS: ALT 67 U/L (4-34); AST 158 U/L (14-36); African American GFR (CKD) >90 (>60 ml/min/1.73 sqM); Albumin 4.2 g/dL (3.5-5.0); Alkaline Phosphatase 124 U/L (38-126); Anion Gap 13 mmol/L; Blood Urea Nitrogen 17 mg/dL (7-17); Calcium 7.9 mg/dL (8.4-10.2); Carbon Dioxide 22 mmol/L (22-30); Chloride 110 mmol/L (98-107); Glucose 85 mg/dL (74-99); Magnesium 1.6 mg/dL (1.6-2.3); Non-African American GFR(CKD) >90 (>60 ml/min/1.73 sqM); Potassium 3.8 mmol/L (3.5-5.1); Sodium 145 mmol/L (137-145); Total Bilirubin 0.5 mg/dL (0.2-1.3); Total Protein 6.8 g/dL (6.3-8.2)
--- NOTE | 2022-05-30 20:36 | XR ---
EXAMINATION TYPE: XR Hip LT and AP Pelvis DATE OF EXAM: 05/30/2022 8:16 PM INDICATION: Patient age:Female; 56 years old; Reason for study: Trauma; COMPARISON: None. TECHNIQUE: The left hip was examined in the frontal and lateral projections and a AP pelvis. FINDINGS: There is a lucency through the base of the left femoral neck. No additional fractures recom mended. Mild osteophyte formation of the superior acetabulum. Visualized pelvis is within normal limi ts. Mild degeneration changes of the spine. IMPRESSION: Left femoral neck lucency suspicious for nondisplaced fracture, further evaluation with CT is recomm ended..
[2022-05-30 20:46] LABS: Alcohol 438 mg/dL
[2022-05-30] MEDS ORDERED: NALOXONE 0.4 MG/ML 1 ML VIAL IV PRN (20:54)
[2022-05-30] MEDS ORDERED: KETOROLAC 15 MG/ML 1 ML VIAL IVP PRN (20:54)
[2022-05-30] MEDS ORDERED: MORPHINE SULFATE 2 MG/ML SYRINGE IVP PRN (20:54)
[2022-05-30] MEDS ORDERED: THIAMINE 100 MG/ML 2 ML VIAL IM STA (21:13)
[2022-05-30] MEDS ORDERED: LORazepam 2 MG/ML INJ IV PRN (21:13)
--- NOTE | 2022-05-30 22:13 | CT ---
EXAMINATION TYPE: CT hip LT wo con CT DLP: 334.4 mGycm, Automated exposure control for dose reduction was used. DATE OF EXAM: 05/30/2022 9:36 PM COMPARISON: Extremity radiograph same day. CLINICAL INDICATION:Female, 56 years old with history of Fall, Hip pain, ETOH TECHNIQUE: Axial images were obtained of the left hip . Additional coronal and sagittal reformatted images and soft tissue and bone window were obtained for review. 3-D imaging was created on a [facility] workstation. Contrast used: None Oral contrast used: None FINDINGS: Nondisplaced fracture through the proximal left femur intertrochanteric region involving th e greater trochanter with extension inferiorly. No additional fractures visualized. The fracture line does not definitively extend completely through the femur. Soft tissues are grossly intact. No intra -articular extension. IMPRESSION: Comminuted left greater trochanter fracture.
[2022-05-31] MEDS ORDERED: LORazepam 2 MG/ML INJ IV PRN ×2 (00:53)
--- NOTE | 2022-05-31 01:08 | P.HPIM ---
History of Present Illness H&P Date: 05/30/22 Chief Complaint: left sided chest pain 56 year old female alcoholic with history of afib , CAD , hypertension , stroke , not currently on any treatment patient is intoxicated and unreliable. earlier in the ED , she denied chest pain , however, now she claims coming in due to left sided chest pain and shortness of breath , prior to her injury and fall about 2 weeks ago, she was able to ambulate with no limitations, but she sustained a fall at a friends house, and got evaluated then , and was told she had a hair fracture in her left hip, but she refused to see a surgeon or follow up. and has been powering through it hoping that she would get better, she admits to heavy drinking, however, over past few days, she started noticing left sided chest discomfort upon activity . she reports left sided chest pain with activity , 5/10 in severity associated with shortness of breath, denies palpitations, dizziness, nausea or vomiting. denies any fever, chills or cough she reports a lot of pain over her left hip upon weight bearing. she admits to heavy daily vodka drinking , and her last drink was just before she decided to go to the hospital . she also admits to smoking, but denies any drugs she is currently on no prescription medications, but recalls being on meds for Afib , hypertension , and CAD. in the past. Review of Systems ROS unobtainable: due to mental status Past Medical History Past Medical History: Atrial Fibrillation, Asthma, CVA/TIA, Hypertension, Liver Disease, Pulmonary Embolus (PE), Seizure Disorder Additional Past Medical History / Comment(s): Pt recently admitted to [facility] 12/18/16 with toxic encephalopathy, R facial droop. Other hx: Alcohol abuse-past alcohol withdrawals/DTs/seizure, enlarged liver. History of Any Multi-Drug Resistant Organisms: None Reported Past Surgical History: No Surgical Hx Reported Past Anesthesia/Blood Transfusion Reactions: No Reported Reaction Past Psychological History: Anxiety, Bipolar, Depression, PTSD Past Alcohol Use History: Abuse, Daily, Heavy Past Drug Use History: None Reported - Past Family History Mother Family Medical History: CVA/TIA, Diabetes Mellitus Additional Family Medical History / Comment(s): Mother is alive at age 82 with history of stroke. Father Family Medical History: Cancer Additional Family Medical History / Comment(s): from lung cancer. Father was a smoker. Brother(s) Additional Family Medical History / Comment(s): Patient has one brother age 52 with history of asthma. Patient has one sister age 43 with asthma. Medications and Allergies Home Medications Medication Instructions Recorded Confirmed Type Albuterol Inhaler [Ventolin Hfa 1 - 2 puff INHALATION RT-Q6H PRN 09/27/17 05/30/22 History Inhaler] Allergies Allergy/AdvReac Type Severity Reaction Status Date / Time No Known Allergies Allergy Verified 05/30/22 21:07 Physical Exam Vitals: Vital Signs Temp Pulse Resp BP Pulse Ox 05/30/22 19:28 98.4 F 114 H 16 121/85 93 L Intake and Output 05/30/22 05/30/22 05/30/22 06:59 14:59 22:59 Other: Weight 58.967 kg Constitutional: No acute distress, cooperative, but unreliable Eyes: Anicteric sclerae, moist conjunctiva, Pupils equal round reactive to light ENMT: NC/AT Oropharynx clear, no erythema, or exudates Neck: Supple, no masses, or JVD No carotid bruits No thyromegaly Lungs: Clear to auscultation Clear to percussion Normal respiratory effort, no accessory muscle use Cardiovascular: Heart regular in rate and rhythm, No murmurs, gallops, or rubs trace left leg edema Abdominal: Soft Nontender, no guarding, rebound or rigidity Abdomen moving with respiration Normoactive bowel sounds No hepatomegaly, No splenomegaly No palpable mass No abdominal wall hernia noted Skin: Normal temperature, tone, texture, turgor Extremities: No digital cyanosis No clubbing Pedal pulses intact and symmetrical Radial pulses intact and symmetrical No calf tenderness Psychiatric: Alert and oriented to person, place Neuro Muscles Strength 5/5 in all 4 extremities with limitation over the left hip and knee due to pain over left hip Sensation to light touch grossly present throughout Cranial nerves II-XII grossly intact Lymphatics: no palpable cervical or supraclavicular lymph nodes Results CBC & Chem 7: 05/30/22 20:11 05/30/22 20:11 Labs: Abnormal Lab Results - Last 24 Hours (Table) 05/30/22 05/30/22 Range/Units 20:11 20:11 WBC 3.2 L (3.8-10.6) k/uL RBC 3.78 L (3.80-5.40) m/uL MCV 103.1 H (80.0-100.0) fL MCH 35.2 H (25.0-35.0) pg Plt Count 115 L (150-450) k/uL Chloride 110 H (98-107) mmol/L Creatinine 0.38 L (0.52-1.04) mg/dL Calcium 7.9 L (8.4-10.2) mg/dL AST 158 H (14-36) U/L ALT 67 H (4-34) U/L Serum Alcohol 438 H* mg/dL Assessment and Plan Assessment: 56 year old female alcoholic with history of afib , CAD not currently on any meds, coming in for left sided chest pain , I discussed the case with ED doc, who noted left hip fracture on CT and alcohol intoxication in an alcoholic patient , I accepted the admission for chest pain workup , and surgery evaluation of the left hip fracture with anticipated length of stay < 2 midnights subacute comminuted left greater trochanteric fracture of the left hip pain control with morphine 4 mg IVP q3 hrs PRN orthopedic evaluation atypical chest pain check troponin q3 hrs EKG no acute ST changes, showing normal sinus rhythm pain control with SL nitro if recurrent check lipid panel , A1c cardiology consult quality assurance monitor monitor vital signs no chest pain at this time supplemental oxygen as needed alcohol dependance pending alcohol wighdrawal syndrome benzo per CIWA scale thiamine daily PO IVF hydration with normal saline group social worker consult for resources of substance abuse transaminitis secondary to alcohol abuse slightly elevated AST 158 and ALT 67 continue to monitor thrombocytopenia , mild possibly secondary to alcohol abuse chronic conditions untreated P. afib not on any treatment h/o CAD and stroke full code DVT PPX hepairn sc tid 5000 units blood work reviewed WBC 3.2 Hgb 13.3 unremarkable cr0.38 BUN 17
[2022-05-31 09:27] LABS: Chol/HDL Ratio 1.99 Ratio; LDL Cholesterol,Calculated 109.2 mg/dL (0.0-131.0); VLDL Calculation 14.84 mg/dL (5.00-40.00)
[2022-05-31 10:02] LABS: ALT 60 U/L (8-44); AST 125 U/L (13-35); African American GFR (CKD) 133.3 (60.0-200.0); Albumin 3.9 g/dL (3.8-4.9); Albumin/Globulin Ratio 1.96 (1.60-3.17); Alkaline Phosphatase 116 U/L (41-126); BUN/Creat Ratio 30.02 Ratio (12.00-20.00); Calcium 7.8 mg/dL (8.7-10.3); Carbon Dioxide 19.1 mmol/L (20.0-27.5); Chloride 108 mmol/L (96-109); Glucose 65 mg/dL (70-110); Potassium 4.1 mmol/L (3.5-5.5); Sodium 144 mmol/L (135-145); Total Protein 5.9 g/dL (6.2-8.2)
--- NOTE | 2022-05-31 10:03 | P.CRDCN ---
History of Present Illness Consult date: 05/31/22 Consult reason: chest pain History of present illness: History of present illness: This is a 56 year old female with past medical history of alcohol abuse, DTs and seizure with what alcohol withdrawal, alcoholic liver disease, history of CVA, pulmonary embolism and atrial fibrillation according to her chart. We have been asked to evaluate the patient for chest pain. The patient had a fall 2 weeks ago when she was drinking alcohol and she fell onto her left hip and has had continuous pain although she was able to ambulate somewhat. Patient states that she does have some left mid chest pain but unclear how long this has been going on and circumstances related to the chest pain. Not sure if it has been there since the fall 2 weeks ago. Patient is seen today in the emergency center waiting for a bed on the [facility] floor. Patient has been started on CIWA protocol EKG sinus rhythm with no acute ST changes, second EKG sinus with sinus arrhythmia CAT scan of the left hip showed a left greater trochanteric fracture WBC 3.2, hemoglobin 13.3, platelet count 115. Sodium 145, potassium 3.8, BUN 17 creatinine 0.38. Troponin negative 3. AST 158, ALT 67. Triglycerides 74, cholesterol 249, LDL 109, HDL 125. Serum alcohol 438. Home cardiac medications: None Review Of Systems: At the time of my evaluation: Constitutional: No fever, no chills. EENT: No headache. Lungs: No shortness of breath, cough, no sputum production. No wheezing. Cardiovascular: Reports chest pain, no lower extremity edema. Musculoskeletal: Left hip pain. Neurologic: No aphasia. No facial droop. Physical examination: Gen: This is a 56-year-old female. She is resting on a stretcher and appears to be comfortable and in no acute distress. VS: reviewed HEENT: Head is atraumatic, normocephalic. Pupils equal, round. Sclerae is anicteric. NECK: Supple. No JVD. LUNGS: Clear to auscultation. No wheezes or rhonchi. No intercostal retra ctions. HEART: Regular rate and rhythm. No murmur. ABDOMEN: Soft No tenderness. EXTREMITIES: No pedal edema. NEUROLOGICAL: Patient is awake, alert. Tremors noted. Assessment: Chest pain, acute coronary syndrome ruled out Left greater trochanteric fracture Alcohol intoxication History as above Plan: Start patient on beta heather Lopressor 25 mg twice daily Obtain 2-D echocardiogram and Doppler study to assess cardiac structure and function Further recommendations to follow based upon clinical course Thank you kindly for this consultation. Nurse practitioner note has been reviewed, I agree with documented findings and plan of care. Patient was seen and examined. Past Medical History Past Medical History: Atrial Fibrillation, Asthma, CVA/TIA, Hypertension, Liver Disease, Pulmonary Embolus (PE), Seizure Disorder Additional Past Medical History / Comment(s): Pt recently admitted to [facility] 12/18/16 with toxic encephalopathy, R facial droop. Other hx: Alcohol abuse-past alcohol withdrawals/DTs/seizure, enlarged liver. History of Any Multi-Drug Resistant Organisms: None Reported Past Surgical History: No Surgical Hx Reported Past Anesthesia/Blood Transfusion Reactions: No Reported Reaction Past Psychological History: Anxiety, Bipolar, Depression, PTSD Past Alcohol Use History: Abuse, Daily, Heavy Past Drug Use History: None Reported - Past Family History Mother Family Medical History: CVA/TIA, Diabetes Mellitus Additional Family Medical History / Comment(s): Mother is alive at age 82 with history of stroke. Father Family Medical History: Cancer Additional Family Medical History / Comment(s): from lung cancer. Father was a smoker. Brother(s) Additional Family Medical History / Comment(s): Patient has one brother age 52 with history of asthma. Patient has one sister age 43 with asthma. Medications and Allergies Home Medications Medication Instructions Recorded Confirmed Type Albuterol Inhaler [Ventolin Hfa 1 - 2 puff INHALATION RT-Q6H PRN 09/27/17 05/30/22 History Inhaler] Allergies Allergy/AdvReac Type Severity Reaction Status Date / Time No Known Allergies Allergy Verified 05/30/22 21:07 Physical Exam Vitals: Vital Signs Temp Pulse Resp BP Pulse Ox 05/31/22 07:00 16 91 L 05/31/22 05:30 105/67 05/31/22 05:00 18 101/67 91 L 05/31/22 04:59 20 109/65 93 L 05/30/22 22:41 100 18 109/65 92 L 05/30/22 19:28 98.4 F 114 H 16 121/85 93 L Intake and Output 05/30/22 05/31/22 05/31/22 22:59 06:59 14:59 Other: Weight 58.967 kg Results 05/30/22 20:11 05/31/22 02:40 Cardiac Enzymes 05/30/22 05/31/22 05/31/22 Range/Units 20:11 02:40 06:39 AST 158 H (14-36) U/L Troponin I <0.012 <0.012 (0.000-0.034) ng/mL 05/31/22 Range/Units 08:55 AST (14-36) U/L Troponin I <0.012 (0.000-0.034) ng/mL Lipids 05/31/22 Range/Units 02:40 Triglycerides 74.20 (0.00-149.00) mg/dL Cholesterol 249.00 H (0.00-200.00) mg/dL HDL Cholesterol 125.00 H (40.00-60.00) mg/dL Cholesterol/HDL Ratio 1.99 Ratio CBC 05/30/22 Range/Units 20:11 WBC 3.2 L (3.8-10.6) k/uL RBC 3.78 L (3.80-5.40) m/uL Hgb 13.3 (11.4-16.0) gm/dL Hct 39.0 (34.0-46.0) % Plt Count 115 L (150-450) k/uL Comprehensive Metabolic Panel 05/30/22 Range/Units 20:11 Sodium 145 (137-145) mmol/L Potassium 3.8 (3.5-5.1) mmol/L Chloride 110 H (98-107) mmol/L Carbon Dioxide 22 (22-30) mmol/L BUN 17 (7-17) mg/dL Creatinine 0.38 L (0.52-1.04) mg/dL Glucose 85 (74-99) mg/dL Calcium 7.9 L (8.4-10.2) mg/dL AST 158 H (14-36) U/L ALT 67 H (4-34) U/L Alkaline Phosphatase 124 (38-126) U/L Total Protein 6.8 (6.3-8.2) g/dL Albumin 4.2 (3.5-5.0) g/dL Current Medications Generic Name Dose Route Start Last Admin Trade Name Freq PRN Reason Stop Dose Admin Heparin Sodium (Porcine) 5,000 unit 05/31/22 08:00 Heparin Sodium,Porcine/Pf 5,000 Unit/0.5 Ml Syringe SQ Q8HR LACHELLE Sodium Chloride 1,000 mls @ 75 mls/hr 05/30/22 21:12 05/30/22 22:44 Saline 0.9% IV 05/31/22 10:31 75 mls/hr .[id number] ONE Administration Lorazepam 1 mg 05/30/22 21:13 Lorazepam 2 Mg/Ml Inj IV Q2HR PRN CIWA 8 or 9 Lorazepam 1 mg 05/31/22 00:53 Lorazepam 2 Mg/Ml Inj IV Q1HR PRN CIWA 10 to 15 Lorazepam 1 mg 05/31/22 00:53 Lorazepam 2 Mg/Ml Inj IV Q2HR PRN CIWA 8 or 9 Lorazepam 2 mg 05/31/22 00:53 Lorazepam 2 Mg/Ml Inj IV 06/02/22 00:53 Q10M PRN CIWA 16 or higher Metoprolol Tartrate 25 mg 05/31/22 09:00 Metoprolol Tartrate 25 Mg Tab PO BID LACHELLE Thiamine HCl 100 mg 05/31/22 09:00 Thiamine 100 Mg Tab PO DAILY LACHELLE Intake and Output 05/30/22 05/31/22 05/31/22 22:59 06:59 14:59 Other: Weight 58.967 kg 05/30/22 20:11 05/30/22 20:11
[2022-05-31] MEDS: THIAMINE 100 MG TAB PO SCH (10:27)
[2022-05-31] MEDS: METOPROLOL TARTRATE 25 MG TAB PO SCH ×2 (10:27→20:07)
[2022-05-31] MEDS: HEPARIN SODIUM,PORCINE/PF 5,000 UNIT/0.5 ML SYRINGE SQ SCH ×2 (10:27→16:55)
[2022-05-31] MEDS: LORazepam 2 MG/ML INJ IV PRN ×3 (10:28→22:00)
--- NOTE | 2022-05-31 11:08 | P.CNOR ---
History of Present Illness - [facility] Consult date: 05/31/22 History of present illness: This patient is a 56-year-old female with a past medical history of alcohol abuse, CVA, pulmonary embolus, atrial fibrillation that presented to [facility] emergency department yesterday for complaints of chest pain and left hip pain. The patient notes that she fell about 2 weeks ago and injured the l eft hip. She states she has been able to ambulate on the left hip following this fall with a cane. She states the pain has slowly be getting worse over the past 2 weeks. She states she then fell again yesterday afternoon after drinking alcohol. She began to experience chest pain, therefore she presented to the emergency department. X-rays in the emergency department of the left hip revealed a fracture of the left greater trochanter. The patient was admitted under the care of internal medicine with consults placed to cardiology and orthopedic surgery. Patient is examined bedside in the emergency department this morning. She is complaining of isolated left hip pain at this time. She states she has not attempted to ambulate following her fall yesterday. She states she drinks about a pint to one fifth of vodka a day. She has no additional complaints at this time. Vital signs stable. Past Medical History Past Medical History: Atrial Fibrillation, Asthma, CVA/TIA, Hypertension, Liver Disease, Pulmonary Embolus (PE), Seizure Disorder Additional Past Medical History / Comment(s): Pt recently admitted to [facility] 12/18 with toxic encephalopathy, R facial droop. Other hx: Alcohol abuse-past alcohol withdrawals/DTs/seizure, enlarged liver. History of Any Multi-Drug Resistant Organisms: None Reported Past Surgical History: No Surgical Hx Reported Past Anesthesia/Blood Transfusion Reactions: No Reported Reaction Past Psychological History: Anxiety, Bipolar, Depression, PTSD Past Alcohol Use History: Abuse, Daily, Heavy Past Drug Use History: None Reported - Past Family History Mother Family Medical History: CVA/TIA, Diabetes Mellitus Additional Family Medical History / Comment(s): Mother is alive at age 82 with history of stroke. Father Family Medical History: Cancer Additional Family Medical History / Comment(s): from lung cancer. Father was a smoker. Brother(s) Additional Family Medical History / Comment(s): Patient has one brother age 52 with history of asthma. Patient has one sister age 43 with asthma. Medications and Allergies Home Medications Medication Instructions Recorded Confirmed Type Albuterol Inhaler [Ventolin Hfa 1 - 2 puff INHALATION RT-Q6H PRN 09/27/17 05/30/22 History Inhaler] Allergies Allergy/AdvReac Type Severity Reaction Status Date / Time No Known Allergies Allergy Verified 05/30/22 21:07 Physical Examination On examination, patient is sitting up on the gurney in no apparent distress. She is alert and oriented 3. Her head appears normocephalic and atraumatic. Her breathing appears nonlabored. On inspection of her bilateral upper extremities, there are no obvious deformities or signs of trauma. On inspection of her right lower extremity, no obvious deformities or signs of trauma. On inspection of the left hip, there are no open wounds or lacerations, no ecchymosis, erythema. There is mild pain to palpation of the lateral hip. Mild pain to palpation of the medial joint line of the knee. There is mild pain with passive range of motion of the left hip. No pain past range of motion of the left knee. Motor and sensory function is intact of the left lower extremity. Left lower extremity warm and well perfused. Results Left hip and pelvis CT 05/30/22: Non-displaced fracture of the left greater trochanter with possible extension into the intertrochanteric region. - Labs Labs: Abnormal Lab Results - Last 24 Hours (Table) 05/30/22 05/30/22 05/31/22 Range/Units 20:11 20:11 02:40 WBC 3.2 L (3.8-10.6) k/uL RBC 3.78 L (3.80-5.40) m/uL MCV 103.1 H (80.0-100.0) fL MCH 35.2 H (25.0-35.0) pg Plt Count 115 L (150-450) k/uL Chloride 110 H (98-107) mmol/L Carbon Dioxide 19.1 L (20.0-27.5) mmol/L Creatinine 0.38 L 0.4 L (0.52-1.04) mg/dL BUN/Creatinine Ratio 30.02 H (12.00-20.00) Ratio Glucose 65 L (70-110) mg/dL Calcium 7.9 L 7.8 L (8.4-10.2) mg/dL AST 158 H 125 H (14-36) U/L ALT 67 H 60 H (4-34) U/L Total Protein 5.9 L (6.2-8.2) g/dL Cholesterol 249.00 H (0.00-200.00) mg/dL HDL Cholesterol 125.00 H (40.00-60.00) mg/dL Serum Alcohol 438 H* mg/dL H & H 05/30/22 Range/Units 20:11 Hgb 13.3 (11.4-16.0) gm/dL Hct 39.0 (34.0-46.0) % Result Diagrams: 05/30/22 20:11 05/31/22 02:40 Assessment and Plan Assessment: Non-displaced fracture of the left greater trochanter with possible extension into the intertrochanteric region Alcohol abuse Plan: - Clinical and imaging findings were discussed with the patient. Patient was discussed with Dr. Stovall. Recommend MRI of the left hip to determine the extent of extension of the fracture into intertrochanteric region. Based on results, patient may benefit for surgical intervention. Patient verbalizes und erstanding and agreement with this plan. - Obtain left knee x-rays. - Patient should remain non-weight bearing on the left lower extremity with a walker. - Pain management as needed. - Will make further recommendations after imaging.
--- NOTE | 2022-05-31 11:19 | P.PN ---
Subjective Progress Note Date: 05/31/22 Patient seen and examined at bedside. Patient remains in the ER at this time. Patient continues to have tremors. Last drink was last night. Patient drinks 1 pint of vodka a day. See was score at 9:56 AM today was 10. She currently denies chest pain or shortness of breath. At time of interview, patient was eating breakfast and was difficult to hold her cup due to the shaking of her hands. Objective - Vital Signs Vital signs: Vital Signs Temp 98.4 F 05/30/22 19:28 Pulse 92 05/31/22 10:28 Resp 18 05/31/22 10:28 BP 114/71 05/31/22 10:28 Pulse Ox 98 05/31/22 10:28 FiO2 Intake & Output 05/30/22 05/31/22 05/31/22 18:59 06:59 18:59 Weight 58.967 kg - Exam General: [non toxic], [no distress], [older than stated age Derm: [warm], [dry] Head: [atraumatic], [normocephalic], [symmetric] Eyes: [EOMI], [no lid lag], [anicteric sclera] Mouth: [no lip lesion], [mucus membranes moist] Cardiovascular: [S1S2 reg], [no murmur], [positive posterior tibial pulse bilateral], Lungs: [CTA bilateral], [no rhonchi, no rales] , [no accessory muscle use] Abdominal: [soft], [ nontender to palpation], [no guarding], [no appreciable organomegaly] Ext: [no gross muscle atrophy], [no edema], [no contractures] Neuro: [ CN II-XI grossly intact], [no focal neuro deficits] tremor of the hands Psych: [Alert], [oriented], [appropriate affect] - Labs CBC & Chem 7: 05/30/22 20:11 05/31/22 02:40 Labs: Abnormal Lab Results - Last 24 Hours (Table) 05/30/22 05/30/22 05/31/22 Range/Units 20:11 20:11 02:40 WBC 3.2 L (3.8-10.6) k/uL RBC 3.78 L (3.80-5.40) m/uL MCV 103.1 H (80.0-100.0) fL MCH 35.2 H (25.0-35.0) pg Plt Count 115 L (150-450) k/uL Chloride 110 H (98-107) mmol/L Carbon Dioxide 19.1 L (20.0-27.5) mmol/L Creatinine 0.38 L 0.4 L (0.52-1.04) mg/dL BUN/Creatinine Ratio 30.02 H (12.00-20.00) Ratio Glucose 65 L (70-110) mg/dL Calcium 7.9 L 7.8 L (8.4-10.2) mg/dL AST 158 H 125 H (14-36) U/L ALT 67 H 60 H (4-34) U/L Total Protein 5.9 L (6.2-8.2) g/dL Cholesterol 249.00 H (0.00-200.00) mg/dL HDL Cholesterol 125.00 H (40.00-60.00) mg/dL Serum Alcohol 438 H* mg/dL Assessment and Plan Assessment: 1. Atypical chest pain Troponin 3 within normal limits ACS ruled out Cardiology following recommendations appreciated Echocardiogram ordered supplemental oxygen as needed 2. Subacute comminuted left greater trochanteric fracture of the left hip pain control with morphine 4 mg IVP q3 hrs PRN Awaiting orthopedic evaluation 3. Alcohol dependance pending alcohol wighdrawal syndrome CIWA protocol thiamine daily PO IVF hydration with normal saline social insurance administrator consult for resources of substance abuse 4. Transaminitis secondary to alcohol abuse slightly elevated AST 158 and ALT 67 trending down....AST 125 and ALT 60 today 5. Thrombocytopenia , mild likely secondary to alcohol abuse 6. Chronic conditions untreated P. afib not on any treatment h/o CAD and stroke Lopressor 25 mg twice daily added 7. DVT PPX hepairn sc tid 5000 units 8. GI prophylaxis prtonix 40mg po daily 8. AM labs Anticipated length of stay greater than 2 midnights Home with home care versus rehab PT OT consult
--- NOTE | 2022-05-31 12:44 | XR ---
EXAMINATION TYPE: XR knee complete LT DATE OF EXAM: 05/31/2022 12:39 PM INDICATION: Patient age:Female; 56 years old; Reason for study: pain after fall; PHH. COMPARISON: None. TECHNIQUE: The Left knee(s) was examined in 3 projections. Frontal, lateral and oblique. FINDINGS: No evidence of any acute osseous pathology joint space narrowing. Mild soft tissue edema of the anterior knee. Small suprapatellar joint effusion. Suprapatellar spur noted. Incidental avni davison IMPRESSION: 1. No acute osseous pathology. 2. Small suprapatellar joint effusion. 3. Mild soft tissue edema anterior knee.
[2022-05-31] MEDS: PANTOPRAZOLE 40 MG TABLET PO SCH (12:56)
--- NOTE | 2022-05-31 19:30 | MR ---
EXAMINATION TYPE: MR hip LT wo con DATE OF EXAM: 05/31/2022 COMPARISON: CT left hip from 1 day earlier HISTORY: LT HIP PAIN FROM FALL Standard multiplanar, multisequence MRI departmental protocol Multiplanar, multisequence images of the pelvis focusing on the left hip were acquired without contra st. . FINDINGS: There is diminished T1 and increased T2 signal consistent with osseous edema through the en tire intertrochanteric region of the left proximal femur. Tiny displaced fracture in the region of th e greater trochanter is better seen on CT versus MRI but felt to be seen best on coronal image 12 wit h subtle irregular linear T1 signal corresponding to minimally displaced fracture on CT. Some areas o f subtle diminished T1 signal near the lesser trochanter axial image 9 for reference. There is no promise ear T1 hypointense extension line through the entire intertrochanteric region clearly identified. No hip joint dislocation. Abnormal increased T2 signal in the surrounding tissues extending along the ob turator muscles towards the pubic symphysis consistent with muscular injury. Symmetric small size shaw nt effusions. No additional areas of abnormal increased T2 signal or edema throughout the pelvis. No free fluid in the pelvis. No abnormal bowel dilatation. IMPRESSION: Marked intertrochanteric edema in the left proximal femur. Some microfracture or partial nondisplaced fracture is present. There is no contiguous complete intertrochanteric fracture identifi ed. There is adjacent deep muscular and soft tissue injury.
[2022-06-01] MEDS: HEPARIN SODIUM,PORCINE/PF 5,000 UNIT/0.5 ML SYRINGE SQ SCH ×3 (00:08→16:11)
[2022-06-01] MEDS: NICOTINE 21MG/24HR PATCH TRANSDERM SCH ×2 (00:14→10:07)
[2022-06-01] MEDS ORDERED: KETOROLAC 15 MG/ML 1 ML VIAL IVP STA (03:04)
[2022-06-01] MEDS: LORazepam 2 MG/ML INJ IV PRN (04:51)
[2022-06-01] MEDS: PANTOPRAZOLE 40 MG TABLET PO SCH (06:16)
--- NOTE | 2022-06-01 09:40 | CA ---
Transthoracic Echo Report Name: Malia Corbett Age: 56 Gender: F : 1965 Exam Date: 05/31/2022 14:00 Exam Location: [place] Echo Ht (in): 63 Wt (lb): 130 Ordering Physician: Radha Holguin Attending/Referring Phys: [id number], Ezio Motor Vehicle Inspector Lora Patel RDCS Procedure CPT: Indications: LVF Cardiac Hx: Technical Quality: Fair Contrast 1: Total Dose (mL): Contrast 2: Total Dose (mL): MEASUREMENTS (Male / Female) Normal Values 2D ECHO LV Diastolic Diameter PLAX 3.5 cm 4.2 - 5.9 / 3.9 - 5.3 cm LV Systolic Diameter PLAX 2.5 cm IVS Diastolic Thickness 1.0 cm 0.6 - 1.0 / 0.6 - 0.9 cm LVPW Diastolic Thickness 1.0 cm 0.6 - 1.0 / 0.6 - 0.9 cm LV Relative Wall Thickness 0.6 RV Internal Dim ED PLAX 2.9 cm LA Systolic Diameter LX 3.2 cm 3.0 - 4.0 / 2.7 - 3.8 cm M-MODE Aortic Root Diameter MM 2.6 cm MV E Point Septal Separation 0.5 cm AV Cusp Separation MM 1.8 cm DOPPLER AV Peak Velocity 109.4 cm/s AV Peak Gradient 4.8 mmHg MV Area PHT 3.9 cm??? Mitral E Point Velocity 78.3 cm/s Mitral A Point Velocity 88.0 cm/s Mitral E to A Ratio 0.9 MV Deceleration Time 194.0 ms MV E' Velocity 10.5 cm/s Mitral E to MV E' Ratio 7.4 TR Peak Velocity 233.1 cm/s TR Peak Gradient 21.7 mmHg Right Ventricular Systolic Press 26.3 mmHg FINDINGS Left Ventricle Left ventricular ejection fraction is estimated at 55-60 %. Small left ventricular cavity. Left ventricular wall thickness normal. Normal left ventricular wall motion. Right Ventricle Normal right ventricular size and function. Right ventricular systolic pressure within normal limits. Right Atrium Normal right atrial size. Left Atrium Normal left atrial size. Mitral Valve Mitral valve thickened. Mitral annular calcification. Trace to mild mitral regurgitation. Aortic Valve Trileaflet aortic valve. No aortic valve stenosis or regurgitation. Tricuspid Valve Structurally normal tricuspid valve. Mild tricuspid regurgitation. Pulmonic Valve Pulmonic valve not well visualized. Pericardium Normal pericardium. No pericardial effusion. Aorta Normal size aortic root and proximal ascending aorta. CONCLUSIONS Normal LV size and systolic function. Mild mitral and tricuspid insufficiency. No pericardial effusion Previewed by: Dr. Devante Olvera MD (Electronically Signed) Final Date: 01 June 2022 09:39
--- NOTE | 2022-06-01 09:46 | P.PN ---
Subjective Progress Note Date: 06/01/22 History of present illness: This is a 56 year old female with past medical history of alcohol abuse, DTs and seizure with what alcohol withdrawal, alcoholic liver disease, history of CVA, pulmonary embolism and atrial fibrillation according to her chart. We have been asked to evaluate the patient for chest pain. The patient had a fall 2 weeks ago when she was drinking alcohol and she fell onto her left hip and has had continuous pain although she was able to ambulate somewhat. Patient states that she does have some left mid chest pain but unclear how long this has been going on and circumstances related to the chest pain. Not sure if it has been there since the fall 2 weeks ago. Patient is seen today in the emergency center waiting for a bed on the [facility] floor. Patient has been started on CIWA protocol EKG sinus rhythm with no acute ST changes, second EKG sinus with sinus arrhythmia CAT scan of the left hip showed a left greater trochanteric fracture WBC 3.2, hemoglobin 13.3, platelet count 115. Sodium 145, potassium 3.8, BUN 17 creatinine 0.38. Troponin negative 3. AST 158, ALT 67. Triglycerides 74, cholesterol 249, LDL 109, HDL 125. Serum alcohol 438. Home cardiac medications: None 4/5 Patient is seen today on the [facility] floor. She underwent a hip MRI and plan is for conservative management at this time. Echocardiogram reveals normal LV size and systolic function. Mild mitral and tricuspid insufficiency. No pericardial effusion. Heart rate is running in the 80s and 90s, blood pressure 144/87. Patient was started on Lopressor yesterday. She denies having any chest pain. Physical examination: Gen: This is a 56-year-old female. She is resting on a stretcher and appears to be comfortable and in no acute distress. VS: reviewed HEENT: Head is atraumatic, normocephalic. Pupils equal, round. Sclerae is anicteric. NECK: Supple. No JVD. LUNGS: Clear to auscultation. No wheezes or rhonchi. No intercostal retractions. HEART: Regular rate and rhythm. No murmur. ABDOMEN: Soft No tenderness. EXTREMITIES: No pedal edema. NEUROLOGICAL: Patient is awake, alert. Tremors noted. Assessment: Chest pain, acute coronary syndrome ruled out Left greater trochanteric fracture Alcohol intoxication History as above Plan: Continue patient on Lopressor 25 mg twice daily Patient is clear for discharge from cardiology. Nurse practitioner note has been reviewed, I agree with documented findings and plan of care. Patient was seen and examined. Objective - Vital Signs Vital signs: Vital Signs Temp 97.7 F 06/01/22 01:57 Pulse 84 06/01/22 01:57 Resp 15 06/01/22 01:57 BP 144/87 06/01/22 01:57 Pulse Ox 96 06/01/22 01:57 FiO2 Intake & Output 05/31/22 06/01/22 06/01/22 18:59 06:59 18:59 Output Total 400 Balance -400 Weight 58.967 kg Output: Urine 400 Other: Voiding Method External Catheter - Labs CBC & Chem 7: 05/30/22 20:11 05/31/22 02:40 Labs: Abnormal Lab Results - Last 24 Hours (Table) 05/31/22 Range/Units 02:40 Carbon Dioxide 19.1 L (20.0-27.5) mmol/L Creatinine 0.4 L (0.6-1.5) mg/dL BUN/Creatinine Ratio 30.02 H (12.00-20.00) Ratio Glucose 65 L (70-110) mg/dL Calcium 7.8 L (8.7-10.3) mg/dL AST 125 H (13-35) U/L ALT 60 H (8-44) U/L Total Protein 5.9 L (6.2-8.2) g/dL Cholesterol 249.00 H (0.00-200.00) mg/dL HDL Cholesterol 125.00 H (40.00-60.00) mg/dL
[2022-06-01] MEDS: METOPROLOL TARTRATE 25 MG TAB PO SCH ×2 (10:08→20:58)
[2022-06-01] MEDS: THIAMINE 100 MG TAB PO SCH (10:08)
--- NOTE | 2022-06-01 11:44 | P.PN ---
Subjective Progress Note Date: 06/01/22 Hospital course: Patient is a 56-year-old female with a past medical history of alcohol abuse reportedly drinking approximately 1 pint of liquor daily, alcohol withdrawal with DTs and withdrawal seizures, hypertension, alcohol induced liver cirrhosis, and paroxysmal atrial fibrillation not on anticoagulation. She presented to the emergency department on 05/30/22 with a chief complaint of left-sided chest pain and left-sided hip pain. Initially patient was intoxicated upon arrival to the ER with serum alcohol level of 438. X-ray left hip revealed a left femoral neck lucency suspicious for nondisplaced fracture. CT left hip completed revealing a comminuted left greater trochanter fracture. Labs completed and reviewed. CBC revealed leukopenia with WBC count of 3.2 and thrombocytopenia with platelet count of 115. BMP was unremarkable. Liver profile revealed elevated liver enzymes with AST of 158 and ALT of 67. Troponin was negative at less than 0.012. EKG completed showing normal sinus rhythm and 95 bpm with no noted T wave or ST abnormality showing no signs of acute ischemia. Patient was admitted under our services with consultation to orthopedic surgery and cardiology. Troponins trended overnight all negative at less than 0.0123 draws. Echocardiogram was completed showing normal EF of 55-60% with mild mitral and tricuspid insufficiency. Physical exam: Vital signs reviewed and stable. General: Nontoxic, no distress and appears stated age. Derm: Skin warm and dry, normal coloration for ethnicity. Head: Atraumatic, normocephalic and symmetric. Eyes: EOMs intact, no lid lag, and anicteric sclera Mouth: no lip lesions, mucus membranes moist Cardiovascular: regular rate and rhythm with normal S1S2, no murmur, positive posterior tibial pulses bilaterally, and cap refill < 2 seconds. Lungs: Respirations even, regular, and unlabored on room air. Lungs CTA bilaterally, no rhonchi, no rales, no wheezing, and no accessory muscle usage. Abdominal: soft, nontender to palpation, no guarding, no appreciable organomegaly Ext: ROM intact. No gross muscle atrophy, no edema, no contractures Neuro: Speech clear, face symmetrical and CN II-XII grossly intact with no noted focal neuro deficits Psych: Alert and oriented to person, place, time, and situation. Appropriate and pleasant affect. Assessment and Plan of Care: Left greater trochanteric fracture Left hip pain, secondary to above -CT left hip completed and reviewed revealing a comminuted left greater trochanter fracture. -Patient underwent MRI and radiology report reviewed showing a marked intertrochanteric edema in the left proximal femur with microfracture or partial nondisplaced fracture present with no contiguous complete intertrochanteric fracture identified accompanied by adjacent deep muscular and soft tissue injury. -Orthopedic surgery following, stating no plans for surgical intervention recommended at this time stating patient may toe-touch weightbearing to left lo wer extremity with walker with no active or passive abduction of the hip. -PT/OT consulted. Alcohol intoxication Alcohol withdrawal with history of DTs and withdrawal seizures -CIWA score 9 this morning. Patient has had a total of 5 mg of Ativan over the past 24 hours. -Continue to monitor closely for signs/symptoms of alcohol withdrawal and treat accordingly with symptom triggered medication management with benzodiazepines as directed. -Continue seizure, fall, and elopement precautions. Chest pain, acute coronary event has been ruled out -Troponins reviewed, all negative at less than 0.0123 draws. -Echocardiogram report reviewed showing a normal EF of 55-60% with mild mitral and tricuspid insufficiency. -Cardiology following, reviewed documentation in chart. Cardiology clearing patient from cardiac perspective recommending patient continue Lopressor 25 mg twice daily with no further recommendations at this time. CODE STATUS: Full code DVT prophylaxis: Heparin Discussed with: Patient and RN Anticipated discharge date: Clinical course to determine Anticipated discharge place: Home Patient was seen independently by Nurse Pracitioner. This document was prepared using [employer] dictation software. Please allow for errors in legal operations manager, while rare they do occur. I reviewed the documentation as provided by the MARILIA above, who is the original author of this note. I agree with the documented assessment and plan, with the following changes: none Objective - Vital Signs Vital signs: Vital Signs Temp 97.7 F 06/01/22 01:57 Pulse 84 06/01/22 01:57 Resp 15 06/01/22 01:57 BP 144/87 06/01/22 01:57 Pulse Ox 96 06/01/22 01:57 FiO2 Intake & Output 05/31/22 06/01/22 06/01/22 18:59 06:59 18:59 Output Total 400 Balance -400 Weight 58.967 kg Output: Urine 400 Other: Voiding Method External Catheter - Labs CBC & Chem 7: 05/30/22 20:11 05/31/22 02:40 Labs: Abnormal Lab Results - Last 24 Hours (Table) 05/31/22 Range/Units 02:40 Carbon Dioxide 19.1 L (20.0-27.5) mmol/L Creatinine 0.4 L (0.6-1.5) mg/dL BUN/Creatinine Ratio 30.02 H (12.00-20.00) Ratio Glucose 65 L (70-110) mg/dL Calcium 7.8 L (8.7-10.3) mg/dL AST 125 H (13-35) U/L ALT 60 H (8-44) U/L Total Protein 5.9 L (6.2-8.2) g/dL Cholesterol 249.00 H (0.00-200.00) mg/dL HDL Cholesterol 125.00 H (40.00-60.00) mg/dL
--- NOTE | 2022-06-01 12:28 | P.PN ---
Subjective Progress Note Date: 06/01/22 This patient is a 56- year old female who orthopedic surgery is following for a non-displaced fracture of the left greater trochanter. Patient underwent MRI of the left hip yesterday. Fracture line does not appear to extend into intertrochanteric region. Patient states pain in the left hip is minimal at this time. She states she had alcohol withdrawal symptoms overnight and received Ativan. Patient that he had been up with physical therapy. No additional complaints. Objective - Vital Signs Vital signs: Vital Signs Temp 98.6 F 06/01/22 08:00 Pulse 88 06/01/22 08:00 Resp 17 06/01/22 08:00 BP 130/82 06/01/22 08:00 Pulse Ox 98 06/01/22 08:00 FiO2 Intake & Output 05/31/22 06/01/22 06/01/22 18:59 06:59 18:59 Output Total 400 Balance -400 Weight 58.967 kg Output: Urine 400 Other: Voiding Method External Catheter - Exam On examination, patient is sitting up in bed in no apparent distress. She is alert and oriented 3. On inspection of the left hip, there are no lacerations, abrasions, ecchymosis, erythema. No open wounds. There is moderate pain on palpation of the lateral hip. There is no pain with passive range of motion or log rolling of the left hip. On inspection of the left knee, there are no signs of trauma. There is minimal pain palpation of the knee. No knee effusion. Motor and sensory function is intact of the left lower extremity. Left lower extremity is warm and well-perfused. Calf is soft and nontender to palpation - Labs CBC & Chem 7: 05/30/22 20:11 05/31/22 02:40 - Imaging and Cardiology MRI left hip 05/31/22 reviewed. X-ray left knee 05/30/22 reviewed. Assessment and Plan Assessment: Non-displaced fracture of the left greater trochanter Alcohol abuse Plan: - MRI of the left hip was reviewed with Dr. Stovall. No surgical intervention is recommended at this time. Recommend toe touch weight bearing left lower extremity with a walker or crutches. No active or passive abduction of the left hip. - Recommended evaluation by physical therapy. - Pain management per primary team. - Ok for discharge from orthopedic standpoint. She should follow-up in the office in 1-2 weeks for repeat x-rays of the left hip.
[2022-06-01] MEDS ORDERED: LORazepam 1 MG TAB PO PRN ×2 (12:39)
[2022-06-01] MEDS ORDERED: LORazepam 0.5 MG TAB PO PRN (12:39)
[2022-06-01] MEDS ORDERED: THIAMINE 100 MG/ML 2 ML VIAL IM STA (12:39)
[2022-06-01] MEDS: LORazepam 1 MG TAB PO PRN ×2 (15:38→20:39)
[2022-06-02] MEDS: HEPARIN SODIUM,PORCINE/PF 5,000 UNIT/0.5 ML SYRINGE SQ SCH ×2 (00:09→08:02)
[2022-06-02 01:32] LABS: Glucose,Whole Blood 84 mg/dL (70-110)
[2022-06-02] MEDS ORDERED: LORazepam 2 MG/ML INJ IV PRN ×3 (02:46)
[2022-06-02] MEDS: LORazepam 1 MG TAB PO PRN (03:21)
[2022-06-02 07:30] VITALS: BP 126/80; PULSE 96; RESP 18; TEMP 98
[2022-06-02] MEDS: NICOTINE 21MG/24HR PATCH TRANSDERM SCH (08:02)
[2022-06-02] MEDS: PANTOPRAZOLE 40 MG TABLET PO SCH (08:02)
[2022-06-02] MEDS: METOPROLOL TARTRATE 25 MG TAB PO SCH (08:02)
[2022-06-02] MEDS ORDERED: THIAMINE 100 MG TAB PO SCH (09:00)
[2022-06-02] MEDS ORDERED: IBUPROFEN 400 MG TAB PO PRN (09:06)
--- NOTE | 2022-06-02 10:13 | P.DS ---
Providers Date of admission: 05/30/22 21:06 Expected date of discharge: 06/02/22 Attending physician: Derek Martinez MD Consults: 05/31/22 01:08 Consult Physician Routine Consulting Provider: Pio Puri Consult Reason/Comments: chest pain Do you want consulting provider notified?: Yes, Notify in am Consult Physician Routine Consulting Provider: Dexter Stovall Consult Reason/Comments: left comminuted greater tronchanteric fracture Do you want consulting provider notified?: Yes Primary care physician: Flaquito Humphreys MD Hospital Course: Discharge Diagnosis: Left greater trochanteric fracture. Left hip pain, secondary to above Alcohol intoxication Alcohol withdrawal with history of DTs and withdrawal seizures. Chest pain, acute coronary event has been ruled out. Cardiology evaluated clearing patient from cardiac perspective recommending patient continue Lopressor 25 mg twice daily with no further recommendations at this time. Hospital Course: Patient is a 56-year-old female with a past medical history of alcohol abuse reportedly drinking approximately 1 pint of liquor daily, alcohol withdrawal with DTs and withdrawal seizures, hypertension, alcohol induced liver cirrhosis, and paroxysmal atrial fibrillation not on anticoagulation. She presented to the emergency department on 05/30/22 with a chief complaint of left-sided chest pain and left-sided hip pain. Initially patient was intoxicated upon arrival to the ER with serum alcohol level of 438. X-ray left hip revealed a left femoral neck lucency suspicious for nondisplaced fracture. CT left hip completed revealing a comminuted left greater trochanter fracture. Labs completed and reviewed. CBC revealed leukopenia with WBC count of 3.2 and thrombocytopenia with platelet count of 115. BMP was unremarkable. Liver profile revealed elevated liver enzymes with AST of 158 and ALT of 67. Troponin was negative at less than 0.012. EKG completed showing normal sinus rhythm and 95 bpm with no noted T wave or ST abnormality showing no signs of acute ischemia. Patient was admitted under our services with consultation to orthopedic surgery and cardiology. Troponins trended overnight all negative at less than 0.0123 draws. Echocardiogram was completed showing normal EF of 55-60% with mild mitral and tricuspid insufficiency. Patient underwent MRI and radiology report reviewed showing a marked intertrochanteric edema in the left proximal femur with microfracture or partial nondisplaced fracture present with no contiguous complete intertrochanteric fracture identified accompanied by adjacent deep muscular and soft tissue injury.Orthopedic surgery evaluated stating no plans for surgical intervention recommended at this time stating patient may toe-touch weightbearing to left lower extremity with walker with no active or passive abduction of the hip. patient was placed on CIWA protocol and medicated for symptom triggered symptoms of alcohol withdrawal. Patient requesting discharge and medically is stable for discharge at this time. Patient provided with prescription for walker and walker was delivered to room. Patient was set up with home care and is medically stable for discharge at this time. Patient to follow up outpatient with orthopedic surgery office in 4 days as scheduled, PCP in 1-2 days, and strongly encouraged to avoid any and all alcohol use. Patient provided with outpatient resources available to her including AA meetings. Physical exam: Vital signs reviewed and stable. General: Nontoxic, no distress and appears stated age. Derm: Skin warm and dry, normal coloration for ethnicity. Head: Atraumatic, normocephalic and symmetric. Eyes: EOMs intact, no lid lag, and anicteric sclera Mouth: no lip lesions, mucus membranes moist Cardiovascular: regular rate and rhythm with normal S1S2, no murmur, positive posterior tibial pulses bilaterally, and cap refill < 2 seconds. Lungs: Respirations even, regular, and unlabored on room air. Lungs CTA bilaterally, no rhonchi, no rales, no wheezing, and no accessory muscle usage. Abdominal: soft, nontender to palpation, no guarding, no appreciable organomegaly Ext: ROM intact. No gross muscle atrophy, no edema, no contractures Neuro: Speech clear, face symmetrical and CN II-XII grossly intact with no noted focal neuro deficits Psych: Alert and oriented to person, place, time, and situation. Appropriate and pleasant affect. A total of 31 minutes of time were spent preparing this complex discharge summary. Pt was discharged on 06/02/22 at 10:14 AM Patient was seen independently by Nurse Practitioner. This document was prepared using [employer] dictation software. Please allow for errors in quality assurance assessor while rare they do occur. I reviewed the documentation as provided by the MARILIA above, who is the original author of this note. I agree with the documented assessment and plan, with the following changes: none Patient Condition at Discharge: Stable Plan - Discharge Summary New Discharge Prescriptions: New Metoprolol Tartrate [Lopressor] 25 mg PO BID 30 Days #60 tab Continue Albuterol Inhaler [Ventolin Hfa Inhaler] 1 - 2 puff INHALATION RT-Q6H PRN PRN Reason: Shortness Of Breath Discharge Medication List Albuterol Inhaler [Ventolin Hfa Inhaler] 1 - 2 puff INHALATION RT-Q6H PRN 09/27/17 [History] Metoprolol Tartrate [Lopressor] 25 mg PO BID 30 Days #60 tab 06/02/22 [Rx] Follow up Appointment(s)/Referral(s): [facility] [NON-STAFF] - As Needed Flaquito Humphreys MD [Primary Care Provider] - 1-2 days (patient must call to set up appointmet because she is a new to the office. ) Dexter Stoavll MD [Medical Doctor] - 06/06/22 9:50 am Patient Instructions/Handouts: Pelvic Fracture (DC), Alcohol Intoxication (DC), Abuse of Alcohol (DC), Alcohol Withdrawal (DC), Hip Fracture (GEN) Activity/Diet/Wound Care/Special Instructions: Activity: As tolerated. Take breaks as needed. Diet: Heart healthy and carb consistent diet. Avoid salts, or foods with hidden salts such as canned or boxed foods and frozen dinners. Extra salt makes your heart work harder and traps the fluid in your body for longer. Special Instructions: Take all of your medications as directed and remember to keep all of your doctor's appointments and follow-up as needed. Strongly avoid any and all use of alcohol. Thank you for allowing us to participate in your care, it was truly a pleasure having you for our patient!!! Discharge/Stand Alone Forms: AA Meetings [facility] 22 & 24 - [facility], AA Meetings [place] Discharge Disposition: HOME WITH HOME HEALTH SERVICES
[2022-06-02 11:50] LABS: Magnesium 1.8 mg/dL (1.5-2.4)
[2022-06-02 11:51] LABS: African American GFR (CKD) 130.7 (60.0-200.0); Albumin 4.2 g/dL (3.8-4.9); Albumin/Globulin Ratio 1.79 (1.60-3.17); Anion Gap 16.6 mmol/L (10.00-18.00); BUN/Creat Ratio 18.89 Ratio (12.00-20.00); Blood Urea Nitrogen 8.7 mg/dL (9.0-27.0); Calcium 9.4 mg/dL (8.7-10.3); Carbon Dioxide 22.1 mmol/L (20.0-27.5); Globulin 2.4 g/dL (1.6-3.3); Non-African American GFR(CKD) 112.8 (60.0-200.0); Potassium 3.7 mmol/L (3.5-5.5); Total Bilirubin 0.8 mg/dL (0.30-1.20); Total Protein 6.6 g/dL (6.2-8.2)
== END 2022-06-02 11:50 | disposition home health service (06) | DRG 536 ==
LOC: EC 19:25 → 4SSUR 21:06
PROVIDERS: ADMIT Internal Medicine; ATTEND Internal Medicine
PROC: HZ2ZZZZ Detoxification Services for Substance Abuse Treatment (ICD-10-PCS; principal; 2022-05-30)
DX: S72.115A Nondisplaced fracture of greater trochanter of left femur, initial encounter for closed fracture (principal); F10.139 Alcohol abuse with withdrawal, unspecified; D69.6 Thrombocytopenia, unspecified; K70.30 Alcoholic cirrhosis of liver without ascites; I10 Essential (primary) hypertension; I08.1 Rheumatic disorders of both mitral and tricuspid valves; F10.129 Alcohol abuse with intoxication, unspecified; Y90.8 Blood alcohol level of 240 mg/100 ml or more; I25.10 Atherosclerotic heart disease of native coronary artery without angina pectoris; F17.210 Nicotine dependence, cigarettes, uncomplicated; I48.0 Paroxysmal atrial fibrillation; R74.8 Abnormal levels of other serum enzymes; R07.89 Other chest pain; R25.1 Tremor, unspecified; Z86.711 Personal history of pulmonary embolism; Z91.81 History of falling; Z86.73 Personal history of transient ischemic attack (TIA), and cerebral infarction without residual deficits
CPT/HCPCS: 36415; 73502; 80053; 80061; 80320; 83735; 84484; 85025; 85027; 93005; 93306; 96361; 96372; 96374; 96376; 99285